=== PATIENT | female | born 1955 | race Caucasian/White ===

== ENCOUNTER 2017-06-02 15:24 | Emergency (ER) | payer OTHER ==
[~2017-06-02] VITALS: Ht 172.7 cm; Wt 81.7 kg
[~2017-06-02 15:24] MED LIST: ALPR.25 PO; ASCO500 PO; ASPI81CH PO; B Complex #11 EACH PO; BIOTIN1 MG PO; Budeprion Xl300 MG PO; CALCIUM PO; COQ1050 MG PO; CYAN500 PO; CYCL10 PO; IBUP600 PO; LETR2.5 PO; OXYC5; PROLIA60 MG/1 ML SC; VALACYCLOVIR500 MG PO; VIT PO; VITAMIN D-32000 UNI1 PO
[2017-06-02 16:11] LABS: BASOPHILS ABSOLUTE AUTO 0.04 K/mm3 (0.00-0.23); BASOPHILS PERCENT AUTO 1 % (0-2); EOSINOPHILS ABSOLUTE AUTO 0.09 K/mm3 (0.00-0.68); EOSINOPHILS PERCENT AUTO 1 % (0-6); Hematocrit 43.9 % (33.0-51.0); Hemoglobin 14.7 g/dL (11.5-16.0); IMMATURE GRAN ABSOLUTE AUTO 0.02 K/mm3 (0.00-0.10); IMMATURE GRAN PERCENT AUTO 0 % (0-1); LYMPHOCYTES ABSOLUTE AUTO 0.85 K/mm3 (0.84-5.20); LYMPHOCYTES PERCENT AUTO 10 % (21-46); MONOCYTES ABSOLUTE AUTO 0.47 K/mm3 (0.16-1.47); MONOCYTES PERCENT AUTO 6 % (4-13); Mean Corpuscular HGB 29.5 pg (26.0-34.0); Mean Corpuscular HGB Conc 33.5 g/dL (31.5-36.5); Mean Corpuscular Volume 88 fL (80-100); Mean Platelet Volume 9.2 fL (9.1-12.4); NEUTROPHILS ABSOLUTE AUTO 6.94 K/mm3 (1.96-9.15); NEUTROPHILS PERCENT AUTO 83 % (41-73); Platelet Count 275 K/mm3 (150-400); RDW Standard Deviation 38.6 fL (35.1-46.3); Red Blood Cell Count 4.99 M/mm3 (3.80-5.20); White Blood Cell Count 8.41 K/mm3 (4.00-11.30)
[2017-06-02 16:31] LABS: Alanine Aminotransfer (ALT/SGP 34 U/L (12-78); Albumin, Blood 3.9 g/dL (3.4-5.0); Alk Phos 78 U/L (50-136); Anion Gap 9 mmol/L (6-16); Aspartate Aminotrans (AST/SGOT 30 U/L (12-37); Bilirubin, Total 0.4 mg/dL (0.1-1.0); Blood Urea Nitrogen 16 mg/dL (8-24); Bun/Creatinine Ratio 20.5 (12.0-20.0); CO2, Blood 25 mmol/L (21-32); Calcium, Blood 9.3 mg/dL (8.5-10.1); Chloride, Blood 102 mmol/L (98-108); Creatinine, Blood 0.78 mg/dL (0.40-1.00); Globulin, Blood 3.9 g/dL (2.2-4.0); Glomerular Filtration Rate >60 (60-); Glucose, Blood 99 mg/dL (70-99); Potassium, Blood 4.4 mmol/L (3.5-5.5); Sodium, Blood 136 mmol/L (136-145); Total Protein, Blood 7.8 g/dL (6.4-8.2)
[2017-06-02] MEDS ORDERED: CHOL10002 PO (16:36)
[2017-06-02 18:45] LABS: Source, Urine Clean Catch
[2017-06-02 18:48] LABS: Bilirubin, Urine Neg (Neg); Blood, Urine 1+ (Neg); Glucose Qualitative, Urine Neg (Neg); Ketones, Urine Neg (Neg); Leukocyte Esterase, Urine 1+ (Neg); Nitrite, Urine Neg (Neg); Protein, Urine Neg (Neg); Specific Gravity, Urine 1.015 (1.003-1.022); Urobilinogen, Urine NORM (Normal)
[2017-06-02 18:55] LABS: Influenza A Negative (NEGATIVE); Influenza B Negative (NEGATIVE)
[2017-06-02 19:01] LABS: Appearance, Urine Clear (Clear); Color, Urine Pale Yellow (P-Yellow)
[2017-06-02 19:03] LABS: Red Blood Cells, Urine Not Seen /hpf (0-2); Squamous Epithelial Cells Not Seen /hpf (Few); White Blood Cells, Urine 0-2 /hpf (0-5)
[2017-06-02 19:04] LABS: Bacteria Few /hpf
[2017-06-02] MEDS ORDERED: PROM25 PO (19:15)
[2018-01-01] MEDS ORDERED: LETR2.5 PO (15:37)
[2018-01-01] MEDS ORDERED: DEXA2 PO (15:38)
[2018-01-01] MEDS ORDERED: ONDA4ODT MM (15:38)
[2018-01-01] MEDS ORDERED: FURO40 PO (15:39)
[2018-01-01] MEDS ORDERED: Megace Es625 MG/5 M PO (15:39)
[2018-01-01] MEDS ORDERED: GABA300 PO (15:39)
[2018-01-25] MEDS ORDERED: PENVK250 PO (20:01)
== END 2017-06-02 19:30 | disposition home or self-care (01) ==
LOC: ER 15:24
PROVIDERS: Emergency Medicine
DX: R11.2 Nausea with vomiting, unspecified (principal); C34.91 Malignant neoplasm of unspecified part of right bronchus or lung; C79.31 Secondary malignant neoplasm of brain; Z88.5 Allergy status to narcotic agent; Z79.899 Other long term (current) drug therapy; Z79.82 Long term (current) use of aspirin; Z85.3 Personal history of malignant neoplasm of breast; Z90.12 Acquired absence of left breast and nipple; Z87.891 Personal history of nicotine dependence
CPT/HCPCS: 36415; 80053; 81001; 83690; 85025; 87086; 87804; 96361; 96374; 99283; J2405; J7030

== ENCOUNTER 2017-06-14 07:11 | Day surgery (SDC) | payer OTHER ==
[~2017-06-14] VITALS: Ht 175.3 cm; Wt 82.5 kg
[~2017-06-14 07:11] MED LIST changes: +CHOL10002 PO; +PROM25 PO
[2018-01-01] MEDS ORDERED: LETR2.5 PO (15:37)
[2018-01-01] MEDS ORDERED: DEXA2 PO (15:38)
[2018-01-01] MEDS ORDERED: ONDA4ODT MM (15:38)
[2018-01-01] MEDS ORDERED: Megace Es625 MG/5 M PO (15:39)
[2018-01-01] MEDS ORDERED: FURO40 PO (15:39)
[2018-01-01] MEDS ORDERED: GABA300 PO (15:39)
[2018-01-25] MEDS ORDERED: PENVK250 PO (20:01)
== END 2017-06-14 22:56 | disposition home or self-care (01) ==
LOC: ORSCMMR 07:11
PROVIDERS: Surgery
PROC: B5131ZA Fluoroscopy of Right Jugular Veins using Low Osmolar Contrast, Guidance (ICD-10-PCS; principal; 2017-06-14 08:45)
PROC: 05HM33Z Insertion of Infusion Device into Right Internal Jugular Vein, Percutaneous Approach (ICD-10-PCS; principal; 2017-06-14 08:45)
DX: C34.90 Malignant neoplasm of unspecified part of unspecified bronchus or lung (principal); C79.51 Secondary malignant neoplasm of bone; J44.9 Chronic obstructive pulmonary disease, unspecified; Z87.891 Personal history of nicotine dependence; Z79.82 Long term (current) use of aspirin; Z79.899 Other long term (current) drug therapy
CPT/HCPCS: 77001; C1788; J0690; J1100; J1642; J2250; J2370; J2405; J3010; J7120

== ENCOUNTER 2018-01-04 06:02 | Day surgery (SDC) | payer OTHER ==
[~2018-01-04] VITALS: Ht 175.3 cm; Wt 81.7 kg
[~2018-01-04 06:02] MED LIST changes: -B Complex #11 EACH PO; +DEXA2 PO; +FURO40 PO; +GABA300 PO; +Megace Es625 MG/5 M PO; +ONDA4ODT MM; +Super B Comple150 MG PO
== END 2018-01-04 22:49 | disposition home or self-care (01) ==
LOC: ORSCMMR 06:02 → ORD 07:30 → ORSCMMR 07:30
PROVIDERS: Surgery
PROC: 05H533Z Insertion of Infusion Device into Right Subclavian Vein, Percutaneous Approach (ICD-10-PCS; principal; 2018-01-04 07:30)
PROC: B546ZZA Ultrasonography of Right Subclavian Vein, Guidance (ICD-10-PCS; principal; 2018-01-04 07:30)
DX: C34.11 Malignant neoplasm of upper lobe, right bronchus or lung (principal); C79.51 Secondary malignant neoplasm of bone; T82.514A Breakdown (mechanical) of infusion catheter, initial encounter; J44.9 Chronic obstructive pulmonary disease, unspecified; M79.7 Fibromyalgia; Z79.899 Other long term (current) drug therapy; Z87.891 Personal history of nicotine dependence; Z79.82 Long term (current) use of aspirin
CPT/HCPCS: 77001; C1788; J0690; J1642; J2001; J2250; J2370; J3010; J7120

== ENCOUNTER 2018-04-21 11:12 | Inpatient (IN) | payer OTHER ==
[~2018-04-21] VITALS: Ht 172.7 cm; Wt 77.4 kg
[~2018-04-21 11:12] MED LIST changes: +B Complex #11 EACH PO; -BIOTIN1 MG PO; +BIOTIN5000 MCG PO; +PENVK250 PO; -Super B Comple150 MG PO
[2018-04-21] MEDS ORDERED: OXYC10TA19 PO (11:27)
[2018-04-21] MEDS ORDERED: VALA500 PO (11:27)
[2018-04-21 12:37] LABS: BASOPHILS ABSOLUTE AUTO 0.03 K/mm3 (0.00-0.23); BASOPHILS PERCENT AUTO 0 % (0-2); EOSINOPHILS ABSOLUTE AUTO 0.15 K/mm3 (0.00-0.68); EOSINOPHILS PERCENT AUTO 2 % (0-6); Hemoglobin 13.7 g/dL (11.5-16.0); IMMATURE GRAN ABSOLUTE AUTO 0.01 K/mm3 (0.00-0.10); IMMATURE GRAN PERCENT AUTO 0 % (0-1); LYMPHOCYTES ABSOLUTE AUTO 1.29 K/mm3 (0.84-5.20); LYMPHOCYTES PERCENT AUTO 18 % (21-46); MONOCYTES ABSOLUTE AUTO 0.87 K/mm3 (0.16-1.47); MONOCYTES PERCENT AUTO 12 % (4-13); Mean Corpuscular HGB 29.7 pg (26.0-34.0); Mean Corpuscular HGB Conc 31.9 g/dL (31.5-36.5); Mean Corpuscular Volume 93 fL (80-100); Mean Platelet Volume 9.8 fL (9.1-12.4); NEUTROPHILS ABSOLUTE AUTO 4.96 K/mm3 (1.96-9.15); NEUTROPHILS PERCENT AUTO 68 % (41-73); Platelet Count 232 K/mm3 (150-400); RDW Standard Deviation 41.5 fL (35.1-46.3); Red Blood Cell Count 4.61 M/mm3 (3.80-5.20); White Blood Cell Count 7.31 K/mm3 (4.00-11.30)
[2018-04-21 12:58] LABS: Albumin, Blood 3.2 g/dL (3.4-5.0); Bilirubin, Total 0.4 mg/dL (0.1-1.0); Bun/Creatinine Ratio 8.3 (12.0-20.0); Calcium, Blood 8.5 mg/dL (8.5-10.1); Creatinine, Blood 2.29 mg/dL (0.40-1.00); Globulin, Blood 3.3 g/dL (2.2-4.0); Potassium, Blood 4.4 mmol/L (3.5-5.5); Total Protein, Blood 6.5 g/dL (6.4-8.2)
[2018-04-21 13:55] LABS: Source, Urine Clean Catch
[2018-04-21 14:01] LABS: Appearance, Urine Clear (Clear); Bilirubin, Urine Neg (Neg); Blood, Urine 1+ (Neg); Color, Urine Yellow (P-Yellow); Glucose Qualitative, Urine Neg (Neg); Ketones, Urine Neg (Neg); Leukocyte Esterase, Urine 1+ (Neg); Nitrite, Urine Neg (Neg); Protein, Urine 1+ (Neg); Specific Gravity, Urine 1.015 (1.003-1.022); Urobilinogen, Urine NORM (Normal)
[2018-04-21 14:13] LABS: Squamous Epithelial Cells Few /hpf (Few)
[2018-04-21 14:15] LABS: Bacteria Rare /hpf
[2018-04-21 14:22] LABS: Calcium Oxalate Crystals Many /hpf
--- NOTE | 2018-04-21 19:14 | NUR ---
SHIFT SUMMARY: PATIENT ADMIT FROM ED THIS SHIFT; FULL ADMIT COMPLETED. PT A&O; CALM AND COOEPRATIVE WITH CARE. MEDICATED FOR PAIN PER EMAR. WEAK GAIT; 1-ASSIST c FWW TO BATHROOM; BED ALARM ON FOR SAFETY. REPORT GIVEN TO ONCOMING RN.
[2018-04-22 04:52] LABS: BASOPHILS ABSOLUTE AUTO 0.02 K/mm3 (0.00-0.23); BASOPHILS PERCENT AUTO 1 % (0-2); EOSINOPHILS ABSOLUTE AUTO 0.15 K/mm3 (0.00-0.68); EOSINOPHILS PERCENT AUTO 4 % (0-6); Hematocrit 32.9 % (33.0-51.0); Hemoglobin 10.9 g/dL (11.5-16.0); IMMATURE GRAN ABSOLUTE AUTO 0.01 K/mm3 (0.00-0.10); IMMATURE GRAN PERCENT AUTO 0 % (0-1); LYMPHOCYTES ABSOLUTE AUTO 0.92 K/mm3 (0.84-5.20); LYMPHOCYTES PERCENT AUTO 21 % (21-46); MONOCYTES PERCENT AUTO 12 % (4-13); Mean Corpuscular HGB Conc 33.1 g/dL (31.5-36.5); Mean Corpuscular Volume 91 fL (80-100); Mean Platelet Volume 9.9 fL (9.1-12.4); NEUTROPHILS ABSOLUTE AUTO 2.74 K/mm3 (1.96-9.15); NEUTROPHILS PERCENT AUTO 63 % (41-73); Platelet Count 191 K/mm3 (150-400); RDW Coefficient Variation 11.9 % (11.7-14.2); RDW Standard Deviation 39.7 fL (35.1-46.3); Red Blood Cell Count 3.63 M/mm3 (3.80-5.20); White Blood Cell Count 4.34 K/mm3 (4.00-11.30)
[2018-04-22 05:15] LABS: Alanine Aminotransfer (ALT/SGP 38 U/L (12-78); Albumin, Blood 2.4 g/dL (3.4-5.0); Alk Phos 40 U/L (50-136); Anion Gap 8 mmol/L (6-16); Aspartate Aminotrans (AST/SGOT 40 U/L (12-37); Bilirubin, Total 0.6 mg/dL (0.1-1.0); Blood Urea Nitrogen 11 mg/dL (8-24); Bun/Creatinine Ratio 11.2 (12.0-20.0); CO2, Blood 22 mmol/L (21-32); Calcium, Blood 7.2 mg/dL (8.5-10.1); Chloride, Blood 112 mmol/L (98-108); Creatinine, Blood 0.98 mg/dL (0.40-1.00); Globulin, Blood 2.5 g/dL (2.2-4.0); Glomerular Filtration Rate >60 (60-); Glucose, Blood 92 mg/dL (70-99); Magnesium, Blood 1.6 mg/dL (1.6-2.4); Phosphorus, Blood 2.7 mg/dL (2.5-4.9); Potassium, Blood 3.7 mmol/L (3.5-5.5); Sodium, Blood 142 mmol/L (136-145); Total Protein, Blood 4.9 g/dL (6.4-8.2)
--- NOTE | 2018-04-22 06:10 | NUR ---
SHIFT SUMMARY PT HAS BEEN DOING WELL THIS SHIFT. PT HAD NO ACUTE ISSUES NOTED. PT DISCOMFORT WAS TX PER EMAR. PT IS ABLE TO USE RESTROOM WITHOUT ASSISTANCE. PT IS BREATHING EASY AND SLEEPING. CALL LIGHT IN REACH.
[2018-04-22 10:32] LABS: Eosinophils-Raw #,Urine 0
--- NOTE | 2018-04-22 17:21 | NUR ---
PT HAS BEEN AOX4 AND COOPERATIVE OF CARE. PT HAS CONTINUED TO HAVE LOW BPs AND WAS GIVEN 500ML BOLUS DUE TO BP OF 83/52. PT HAS DENIED FEELING DIZZY TODAY, BUT HAS HAD NAUSEA AND WAS TREATED PER EMAR. PT WALKS WELL TO RESTROOM AND WILL CALL WHEN SHE NEEDS TO USE RESTROOM. WILL MONITOR, NO DISTRESS AT THIS TIME.
[2018-04-23 05:00] LABS: BASOPHILS ABSOLUTE AUTO 0.01 K/mm3 (0.00-0.23); BASOPHILS PERCENT AUTO 0 % (0-2); EOSINOPHILS ABSOLUTE AUTO 0.18 K/mm3 (0.00-0.68); EOSINOPHILS PERCENT AUTO 5 % (0-6); Hematocrit 31.6 % (33.0-51.0); Hemoglobin 10.2 g/dL (11.5-16.0); IMMATURE GRAN PERCENT AUTO 0 % (0-1); LYMPHOCYTES ABSOLUTE AUTO 0.81 K/mm3 (0.84-5.20); LYMPHOCYTES PERCENT AUTO 21 % (21-46); MONOCYTES ABSOLUTE AUTO 0.47 K/mm3 (0.16-1.47); MONOCYTES PERCENT AUTO 12 % (4-13); Mean Corpuscular HGB 29.5 pg (26.0-34.0); Mean Corpuscular HGB Conc 32.3 g/dL (31.5-36.5); Mean Corpuscular Volume 91 fL (80-100); Mean Platelet Volume 9.9 fL (9.1-12.4); NEUTROPHILS ABSOLUTE AUTO 2.44 K/mm3 (1.96-9.15); NEUTROPHILS PERCENT AUTO 62 % (41-73); Platelet Count 161 K/mm3 (150-400); RDW Coefficient Variation 11.7 % (11.7-14.2); RDW Standard Deviation 39.2 fL (35.1-46.3); Red Blood Cell Count 3.46 M/mm3 (3.80-5.20); White Blood Cell Count 3.91 K/mm3 (4.00-11.30)
[2018-04-23 05:27] LABS: Alanine Aminotransfer (ALT/SGP 28 U/L (12-78); Albumin/Globulin Ratio 0.8 (0.8-1.8); Alk Phos 37 U/L (50-136); Anion Gap 7 mmol/L (6-16); Aspartate Aminotrans (AST/SGOT 34 U/L (12-37); Bilirubin, Total 0.4 mg/dL (0.1-1.0); Blood Urea Nitrogen 7 mg/dL (8-24); CO2, Blood 18 mmol/L (21-32); CPK Creatine Kinase 439 U/L (26-193); Calcium, Blood 6.6 mg/dL (8.5-10.1); Chloride, Blood 115 mmol/L (98-108); Globulin, Blood 2.5 g/dL (2.2-4.0); Glomerular Filtration Rate >60 (60-); Glucose, Blood 73 mg/dL (70-99); Sodium, Blood 140 mmol/L (136-145); Total Protein, Blood 4.5 g/dL (6.4-8.2)
--- NOTE | 2018-04-23 06:46 | NUR ---
SHIFT SUMMARY PT HAD UNEVENTFUL NIGHT. PT SLEPT WELL AND HAD NO ACUTE ISSUES. PT INDEPENDANT IN ROOM AND HAD NO SIGNIFICANT COMPLAINTS. PT HAS APPETITE BUT STATES IS AFRAID TO TRY AND EAT. PT BREATHING EASY AND CALL LIGHT IN REACH.
--- NOTE | 2018-04-23 17:52 | NUR ---
SHIFT SUMMARY PATIENT A&O X4, SBA TO BATHROOM. COMPLAINTS OF BACK PAIN THIS SHIFT. RN MEDICATED X2. MEDICATED FOR NAUSEA X1. PATIENT HAS NOT BEEN ABLE TO EAT AT ALL DUE TO HER STOMACH "NOT FEELING WELL." FLUIDS RUNNING. MEDICATED PER Jun. BED IN LOWEST POSITION. CALL LIGHT WITHIN REACH. NO ACUTE CHANGES. RN WILL CONTINUE TO MONITOR.
--- NOTE | 2018-04-24 05:07 | NUR ---
SHIFT SUMMARY: PT IS ALERT AND ORIENTED. PT IS CALM AND COOPERATIVE WITH CARE. PT CALLS APPROPRIATELY. PT IS INDEPENDENT IN THE ROOM. PT REPORTS NAUSEA ON ONE OCCASION, GAVE PRN ZOFRAN. PT DENIES PAIN, VOMITING, AND SOB. PT SLEPT MUCH OF THE NIGHT WHEN NOT DISTURBED. FLUIDS RUNNING ORDERED. POSSIBLE DC HOME TODAY. NO ACUTE CHANGES OR COMPLICATIONS. WILL REPORT TO DAY NURSE.
[2018-04-24] MEDS ORDERED: CLOT10 SS (14:31)
[2018-04-24] MEDS ORDERED: MEGE40T (14:37)
[2018-04-24] MEDS ORDERED: PANT40 PO (14:38)
[2018-04-24] MEDS ORDERED: ONDA4ODT MM (14:38)
--- NOTE | 2018-04-24 16:28 | NUR ---
PT. DISCHARGED HOME WITH DAD VERBALIZED UNDERSTANDING OF DISCHARGE ORDERS.
== END 2018-04-24 16:24 | disposition home or self-care (01) | DRG 682 ==
LOC: ER 11:12 → MEDS 11:13 → ENPENDDIS 04-24 13:27 → MEDS 04-24 16:24
PROVIDERS: Internal Medicine; ADMIT Hospitalist
DX: N17.9 Acute kidney failure, unspecified (principal); E43 Unspecified severe protein-calorie malnutrition; E86.0 Dehydration; E86.9 Volume depletion, unspecified; F32.9 Major depressive disorder, single episode, unspecified; L40.9 Psoriasis, unspecified; M19.90 Unspecified osteoarthritis, unspecified site; M79.7 Fibromyalgia; G89.4 Chronic pain syndrome; D64.89 Other specified anemias; I95.9 Hypotension, unspecified; Z85.3 Personal history of malignant neoplasm of breast; Z92.21 Personal history of antineoplastic chemotherapy; Z92.3 Personal history of irradiation; Z85.118 Personal history of other malignant neoplasm of bronchus and lung; Z91.040 Latex allergy status; Z88.5 Allergy status to narcotic agent; Z91.048 Other nonmedicinal substance allergy status; Z87.891 Personal history of nicotine dependence; Z79.82 Long term (current) use of aspirin; Z79.899 Other long term (current) drug therapy; Z68.25 Body mass index [BMI] 25.0-25.9, adult
CPT/HCPCS: 36415; 71046; 76770; 80053; 81001; 82436; 82550; 83735; 83880; 84100; 84300; 85025; 86140; 87205; 96361; 96374; 96375; 97116; 97161; 97165; 97530; 97535; 99285-25; J2405; J2765; J3010; J7030; J7040; J7120

== ENCOUNTER 2018-05-28 13:36 | Day surgery (SDC) | payer OTHER ==
[~2018-05-28 13:36] MED LIST changes: +CLOT10 SS; +MEGE40T; +OXYC10TA19 PO; +PANT40 PO; +VALA500 PO
== END 2018-05-28 23:02 | disposition home or self-care (01) ==
LOC: US 13:36
DX: R22.9 Localized swelling, mass and lump, unspecified (principal)
CPT/HCPCS: 76942; 88304

== ENCOUNTER 2018-06-13 18:07 | Inpatient (IN) | payer OTHER ==
[~2018-06-13] VITALS: Ht 175.3 cm; Wt 75.7 kg
[2018-06-13 18:39] LABS: BASOPHILS ABSOLUTE AUTO 0.05 K/mm3 (0.00-0.23); BASOPHILS PERCENT AUTO 1 % (0-2); EOSINOPHILS ABSOLUTE AUTO 0.45 K/mm3 (0.00-0.68); EOSINOPHILS PERCENT AUTO 9 % (0-6); Hematocrit 49.7 % (33.0-51.0); Hemoglobin 16.5 g/dL (11.5-16.0); IMMATURE GRAN ABSOLUTE AUTO 0.01 K/mm3 (0.00-0.10); IMMATURE GRAN PERCENT AUTO 0 % (0-1); LYMPHOCYTES PERCENT AUTO 14 % (21-46); MONOCYTES ABSOLUTE AUTO 0.69 K/mm3 (0.16-1.47); MONOCYTES PERCENT AUTO 13 % (4-13); Mean Corpuscular HGB Conc 33.2 g/dL (31.5-36.5); Mean Corpuscular Volume 88 fL (80-100); Mean Platelet Volume 10.2 fL (9.1-12.4); NEUTROPHILS ABSOLUTE AUTO 3.27 K/mm3 (1.96-9.15); NEUTROPHILS PERCENT AUTO 63 % (41-73); Platelet Count 248 K/mm3 (150-400); RDW Coefficient Variation 13.2 % (11.7-14.2); RDW Standard Deviation 42.2 fL (35.1-46.3); Red Blood Cell Count 5.68 M/mm3 (3.80-5.20); White Blood Cell Count 5.17 K/mm3 (4.00-11.30)
[2018-06-13 19:01] LABS: Alanine Aminotransfer (ALT/SGP 153 U/L (12-78); Albumin, Blood 3.7 g/dL (3.4-5.0); Albumin/Globulin Ratio 0.9 (0.8-1.8); Alk Phos 61 U/L (50-136); Anion Gap 12 mmol/L (6-16); Aspartate Aminotrans (AST/SGOT 106 U/L (12-37); Bilirubin, Total 0.6 mg/dL (0.1-1.0); Blood Urea Nitrogen 17 mg/dL (8-24); Bun/Creatinine Ratio 20.5 (12.0-20.0); CO2, Blood 17 mmol/L (21-32); Chloride, Blood 108 mmol/L (98-108); Creatinine, Blood 0.83 mg/dL (0.40-1.00); Globulin, Blood 3.9 g/dL (2.2-4.0); Glomerular Filtration Rate >60 (60-); Glucose, Blood 85 mg/dL (70-99); Potassium, Blood 3.4 mmol/L (3.5-5.5); Sodium, Blood 137 mmol/L (136-145); Total Protein, Blood 7.6 g/dL (6.4-8.2)
--- NOTE | 2018-06-14 06:52 | NUR ---
ASSUMED CARE OF PATIENT AT APPROXIMATELY 0205 FROM ED KELSEY BERUMEN. PATIENT ARRIVED TO UNIT VIA STRETCHER; TRANSFER BY SLIDING ACROSS FROM ED TO PCU STRETCHER. PATIENT ALERT AND ORIENTED; SLOW TO RESPOND. PATIENT INCONTINENT OF DIARRHEA; REPORTS STARTED PAST FEW DAYS; DENICE AREA RED DUE TO STOOL. PATIENT REPORTS SHE IS NOT ALWAYS INCONTINENT. MEDICAL NO TELE OBS PATIENT. OXYGEN SATURATION ABOVE 90% ON ROOM AIR; VSS. NS INFUSING PER ORDER; ONE MORE BAG TO INFUSE. ADMISSION COMPLETE. PATIENT REPORTS LAST CHEMO/RADIATION TREATMENT WAS 4 WEEKS AGO. PATIENT CURRENTLY SLEEPING IN BED; CALL LIGHT IN REACH; BED IN LOWEST POSISTION; WILL CONTINUE TO MONITOR AND ASSESS UNTIL END OF SHIFT.
[2018-06-14 07:31] LABS: Anion Gap 15 mmol/L (6-16); Blood Urea Nitrogen 19 mg/dL (8-24); Bun/Creatinine Ratio 23.2 (12.0-20.0); CO2, Blood 14 mmol/L (21-32); Calcium, Blood 8.7 mg/dL (8.5-10.1); Chloride, Blood 111 mmol/L (98-108); Creatinine, Blood 0.82 mg/dL (0.40-1.00); Glomerular Filtration Rate >60 (60-); Glucose, Blood 83 mg/dL (70-99); Potassium, Blood 3.6 mmol/L (3.5-5.5); Sodium, Blood 140 mmol/L (136-145)
--- NOTE | 2018-06-14 08:00 | NUR ---
PT LAYING IN BED WITH EYES OPEN, A/OX3, PLEASANT AND COOPERATIVE WITH CARE, FOLLOWS COMMANDS WELL, STATES SHE HAS HAD DIARRHEA SINCE MONDAY, AND IS NOT NAUSIATED AT THIS TIME, IS GETTING UP FREQ TO BS, AND SOILING HERSELF, ATTENDS IN PLACE, LUNGS ARE CLEAR T/O, RESP EVEN AND UNLABORED, NO COUGH NOTED, CURRENTLY ON R/A HRR, NO EDEMA NOTED, PPP+1, CAP REFILL <3SEC, VS STABLE, AFEBRILE, IV SITE IS CLEAR AND PATENT, BTX4, ABD FLAT SOFT NONTENDER, VOIDS WITHOUT DIFF, SKIN C/W/D, MAEW, GERALD, CALL LIGHT IN REACH.
[2018-06-14 11:59] LABS: Adenovirus F 40/41 Not Detected (NOT DETECT); Astrovirus Not Detected (NOT DETECT); Campylobacter Sp Not Detected (NOT DETECT); Cryptosporidium Not Detected (NOT DETECT); Cyclospora Cayetanensis Not Detected (NOT DETECT); E. Coli O157 Not Detected (NOT DETECT); Entamoeba Histolytica Not Detected (NOT DETECT); Enteroaggregative E. coli-EAEC Not Detected (NOT DETECT); Enteropathogenic E. coli-EPEC Not Detected (NOT DETECT); Enterotoxigenic E. coli-ETEC Not Detected (NOT DETECT); Giardia Lamblia Not Detected (NOT DETECT); Norovirus GI/GII Detected (NOT DETECT); Plesiomonas Shigelloides Not Detected (NOT DETECT); Rotavirus A Not Detected (NOT DETECT); Salmonella Sp Not Detected (NOT DETECT); Sapovirus Not Detected (NOT DETECT); Shiga Toxin-prod E. coli-STEC Not Detected (NOT DETECT); Shigella/Enteroin E. coli-EIEC Not Detected (NOT DETECT); Vibrio Cholerae Not Detected (NOT DETECT); Vibrio Sp Not Detected (NOT DETECT); Yersinia Enterocolitica Not Detected (NOT DETECT)
--- NOTE | 2018-06-14 12:34 | NUR ---
pt laying in bed, have assisted to bsc a number of times with loose stools, no other needs at this time, call light in reach.
--- NOTE | 2018-06-14 18:33 | NUR ---
PT HAS BEEN NAUSIATED THIS EVENING, SHE DID VOMIT AFTER SIPPING SOME PEPSI, ZOFRAN WAS GIVEN, SHE HAS HAD MANY ATTENDS CHANGES WITH LOOSE STOOL. HER DENICE AREA IS VERY RED, RECIEVED ORDER FOR NYSTATIN, THIS WAS APPLIED, STARTED HER ON D51/2 NS WITH 20 KCL TO RUN AT 75MLS/HR. NO FURTHER CHANGES THIS SHIFT. CALL LIGHT IN REACH.
--- NOTE | 2018-06-14 22:16 | NUR ---
ASSUMED CARE OF PATIENT AT APPROXIMATELY 1910 FROM THEE Pereyra RN. PATIENT ALERT AND ORIENTED; SLOW TO RESPOND; MOMENTS OF CONFUSION. PATIENT INCONTINENT OF DIARRHEA; DENICE AREA RED DUE TO STOOL; NYSTATIN ORDERED. CONTACT ISOLATION FOR VIRUS. MEDICAL NO TELE OBS PATIENT. OXYGEN SATURATION ABOVE 90% ON ROOM AIR; VSS. IVF INFUSING PER ORDER; ONE MORE BAG TO INFUSE. PATIENT REPORTS LAST CHEMO/RADIATION TREATMENT WAS 4 WEEKS AGO. PATIENT CURRENTLY SLEEPING IN BED; CALL LIGHT IN REACH; BED IN LOWEST POSISTION; REPORT CALLED TO STEPHANIE ON MEDICAL FLOOR; PATIENT WILL BE EXCORTED TO ROOM 330 WITH BELONGING ON STRETCHER, CHART AND MEDS BY PCU STAFF.
--- NOTE | 2018-06-14 22:50 | NUR ---
PT ARRIVED TO FLOOR AT 2250 PT ARRIVED TO MED FLOOR RM 330 VIA STRETCHER. I RECIEVED REPORT FROM BONNIE DAMICO RN AROUND [id number].
[2018-06-15 05:40] LABS: BASOPHILS ABSOLUTE AUTO 0.04 K/mm3 (0.00-0.23); BASOPHILS PERCENT AUTO 1 % (0-2); EOSINOPHILS ABSOLUTE AUTO 0.49 K/mm3 (0.00-0.68); EOSINOPHILS PERCENT AUTO 8 % (0-6); Hematocrit 43.6 % (33.0-51.0); Hemoglobin 14.8 g/dL (11.5-16.0); IMMATURE GRAN ABSOLUTE AUTO 0.01 K/mm3 (0.00-0.10); IMMATURE GRAN PERCENT AUTO 0 % (0-1); LYMPHOCYTES ABSOLUTE AUTO 0.88 K/mm3 (0.84-5.20); LYMPHOCYTES PERCENT AUTO 14 % (21-46); MONOCYTES ABSOLUTE AUTO 0.86 K/mm3 (0.16-1.47); MONOCYTES PERCENT AUTO 14 % (4-13); Mean Corpuscular HGB Conc 33.9 g/dL (31.5-36.5); Mean Corpuscular Volume 86 fL (80-100); Mean Platelet Volume 10.5 fL (9.1-12.4); NEUTROPHILS ABSOLUTE AUTO 3.81 K/mm3 (1.96-9.15); NEUTROPHILS PERCENT AUTO 63 % (41-73); Platelet Count 232 K/mm3 (150-400); RDW Coefficient Variation 13.2 % (11.7-14.2); RDW Standard Deviation 41.1 fL (35.1-46.3); White Blood Cell Count 6.09 K/mm3 (4.00-11.30)
--- NOTE | 2018-06-15 06:49 | NUR ---
SHIFT SUMMARY PT SLEPT ON/OFF T/O NIGHT. AOX4. PT REPORTS 4/10 PAIN IN ABD & STATES IT IS TENDER TO TOUCH, BUT DENIES NEED FOR PAIN MEDICATION. PT REPORTS MILD NAUSEA BUT DENIES ANY NEED FOR ANTIEMETIC & HAS HAD NO EMESIS SINCE I ASSUMED CARE. PT HAD 2 MEDIUM LIQUID YELLOW GREEN INCONTINENT BM THIS SHIFT. DENICE AREA & GLUTEAL CLEFT VERY RED & TENDER WHEN WIPED. CALL LIGHT IN REACH & BED ALARM ON, WILL CONT TO MONITOR PT.
[2018-06-15 07:20] LABS: Alanine Aminotransfer (ALT/SGP 96 U/L (12-78); Albumin, Blood 2.8 g/dL (3.4-5.0); Albumin/Globulin Ratio 0.8 (0.8-1.8); Alk Phos 44 U/L (50-136); Anion Gap 11 mmol/L (6-16); Aspartate Aminotrans (AST/SGOT 50 U/L (12-37); Bilirubin, Total 0.5 mg/dL (0.1-1.0); Blood Urea Nitrogen 12 mg/dL (8-24); CO2, Blood 16 mmol/L (21-32); Calcium, Blood 7.9 mg/dL (8.5-10.1); Chloride, Blood 113 mmol/L (98-108); Creatinine, Blood 0.67 mg/dL (0.40-1.00); Globulin, Blood 3.4 g/dL (2.2-4.0); Glomerular Filtration Rate >60 (60-); Glucose, Blood 127 mg/dL (70-99); Potassium, Blood 3.2 mmol/L (3.5-5.5); Sodium, Blood 140 mmol/L (136-145); Total Protein, Blood 6.2 g/dL (6.4-8.2)
--- NOTE | 2018-06-15 18:00 | NUR ---
Went to see patient for care planning and advance directive. Patient alert lennoxng called to patient. Her Iv is leaking and uncomfortable. pt mouth sore stomitis and possible thrush. pt lips slighly swollen and speach thick. to compains of sharp pains to abdomena nd diaphram. pt stools and cramping. she has slight headache no ringining inears and feesl a little tight in her breathing but denies dyspnea. pt graoin red and she is having moisty slimey light brown stools no bleeding noted. pericare given and positionig for comfort. Revie wof patient with nursing suggest sligh increase in pain medications due to increasing pain and stools. monitor closely for allergic reaction suggest treatment for thrush and have benadryl order. advised pt will return to speak with her more and help her with her symptoms and a plan. It may be best to speak with her family or person who helps her when discussing AD.
--- NOTE | 2018-06-15 19:58 | NUR ---
SHIFT SUMMARY PT HAS BEEN SLEEPING MOST OF THE SHIFT. PT HAS NOT HAD MUCH OF AN APPETITE AND HAS ONLY EATEN BITES OF ICE CREAM AND JELLO. PT DOES TRY TO DRINK FLUIDS. PT C/O MOUTH FEELING DRY. THIS RN GAVE PT MOUTH MOISTURIZER. DR. CARDONA AWARE AND ASSESSED PT'S MOUTH/TONGUE THIS AM. PT CONTINUES TO HAVE SMALL AMOUNTS OF LIQUID STOOL BUT NO VOMITING THIS SHIFT. NEW POWERGLIDE PLACED TO RIGHT UPPER ARM THIS EVENING AND CLINIMIX INFUSING. MEDICATED FOR ABDOMINAL CRAMPING/PAIN X1 THIS LATE AFTERNOON AND PT REPORTS MEDICATION HELPED. THIS RN TOLD NOC RN THAT PAIN MEDICATION EFFECTIVE AND TO GIVE SOME TONIGHT. REPORT GIVEN TO NOC RN. NO ACUTE CHANGES AT THIS TIME. CALL LIGHT IN REACH.
--- NOTE | 2018-06-15 22:09 | NUR ---
rx time change femara chemo rx pt takes at hs did not take today. asks the med be given as she takes at home. time change for rx femara and will administer tonight as requested.
[2018-06-16 06:10] LABS: BASOPHILS ABSOLUTE AUTO 0.04 K/mm3 (0.00-0.23); BASOPHILS PERCENT AUTO 1 % (0-2); EOSINOPHILS ABSOLUTE AUTO 0.54 K/mm3 (0.00-0.68); EOSINOPHILS PERCENT AUTO 10 % (0-6); Hemoglobin 12.3 g/dL (11.5-16.0); IMMATURE GRAN ABSOLUTE AUTO 0.02 K/mm3 (0.00-0.10); IMMATURE GRAN PERCENT AUTO 0 % (0-1); LYMPHOCYTES ABSOLUTE AUTO 0.93 K/mm3 (0.84-5.20); LYMPHOCYTES PERCENT AUTO 18 % (21-46); MONOCYTES ABSOLUTE AUTO 0.74 K/mm3 (0.16-1.47); MONOCYTES PERCENT AUTO 14 % (4-13); Mean Corpuscular HGB 29.8 pg (26.0-34.0); Mean Corpuscular HGB Conc 34.2 g/dL (31.5-36.5); Mean Corpuscular Volume 87 fL (80-100); Mean Platelet Volume 10.3 fL (9.1-12.4); NEUTROPHILS PERCENT AUTO 57 % (41-73); Platelet Count 158 K/mm3 (150-400); RDW Coefficient Variation 13.4 % (11.7-14.2); RDW Standard Deviation 42.3 fL (35.1-46.3); Red Blood Cell Count 4.13 M/mm3 (3.80-5.20); White Blood Cell Count 5.27 K/mm3 (4.00-11.30)
[2018-06-16 06:29] LABS: Alanine Aminotransfer (ALT/SGP 71 U/L (12-78); Albumin, Blood 2.4 g/dL (3.4-5.0); Albumin/Globulin Ratio 0.7 (0.8-1.8); Alk Phos 34 U/L (50-136); Anion Gap 9 mmol/L (6-16); Aspartate Aminotrans (AST/SGOT 53 U/L (12-37); Bilirubin, Total 0.9 mg/dL (0.1-1.0); Blood Urea Nitrogen 10 mg/dL (8-24); CO2, Blood 17 mmol/L (21-32); Calcium, Blood 7.6 mg/dL (8.5-10.1); Chloride, Blood 113 mmol/L (98-108); Creatinine, Blood 0.72 mg/dL (0.40-1.00); Globulin, Blood 3.3 g/dL (2.2-4.0); Glomerular Filtration Rate >60 (60-); Glucose, Blood 95 mg/dL (70-99); Magnesium, Blood 1.5 mg/dL (1.6-2.4); Phosphorus, Blood 2.8 mg/dL (2.5-4.9); Potassium, Blood 4.8 mmol/L (3.5-5.5); Sodium, Blood 139 mmol/L (136-145); Total Protein, Blood 5.7 g/dL (6.4-8.2)
--- NOTE | 2018-06-16 06:41 | NUR ---
pt up this AM to bathroom. incontinent of urine large amt. Continues on clinimix via powerglide IV. Shaun AM labs off powerglide. Medicated x 1 with IV zofran for nausea. Denies acute pain but periand anal excoriation sore. minimal appetite drinking milk. This AM interested in popcycle when set up. Yesterday was Birthday and Brother from out of state surprized her with visist here. In isolation for rod.
--- NOTE | 2018-06-16 17:38 | NUR ---
pt more comfotable this morning, review of symptoms and needs, review of turn cough deep breathing and supportive visit.
--- NOTE | 2018-06-16 18:45 | NUR ---
ALERT AND ORIENTED. ABLE TO MAKE NEEDS KNOWN. UNLABORED RESPIRATIONS. STS LESS DIARRHEA TODAY AND NO VOMITING. HAS BEEN MEDICATED FOR NAUSEA X 1. LIKES POPSICLES. SLEEPING MOST OF DAY. WILL CONTINUE TO MONITOR.
--- NOTE | 2018-06-17 05:52 | NUR ---
pt continues on clinimix at 50 ml hr for nutritional support. she has poor appetite and overall intake continues poor. no diarrhea. urine dark voids x 2 on bsc. antiemetic given x 2 with mild helpful effect. co upper back and abd pain this am janene 10 mg helpful to relieve. PT very weak unable to ambulate unassisted. up to bsc with 1 assist fww.
[2018-06-17 06:16] LABS: Anion Gap 9 mmol/L (6-16); Blood Urea Nitrogen 12 mg/dL (8-24); Bun/Creatinine Ratio 17.2 (12.0-20.0); CO2, Blood 19 mmol/L (21-32); Calcium, Blood 7.6 mg/dL (8.5-10.1); Chloride, Blood 114 mmol/L (98-108); Glomerular Filtration Rate >60 (60-); Glucose, Blood 92 mg/dL (70-99); Magnesium, Blood 1.9 mg/dL (1.6-2.4); Potassium, Blood 3.5 mmol/L (3.5-5.5); Sodium, Blood 142 mmol/L (136-145)
--- NOTE | 2018-06-17 18:43 | NUR ---
ALERT AND ORIENTED. ABLE TO MAKE NEEDS KNOWN. POWERGLIDE INFUSING W/CLINIMEX. NO DIARRHEA PER PATIENT THIS SHIFT. NOT MEDICATED FOR NAUSEA. MEDICATED ONCE FOR PAIN W/GOOD RESULTS. HAD SHOWER AND SEEMS TO FEEL BETTER AFTERWARDS. EATTING CLEAR LIQUIDS AND FULL LIQUID SMALL AMOUNT. GAIT LITTLE UNSTEADY, BUT ABLE TO GET TO BATHROOM W/WALKER AND STANDBY. BED IN LOW POSITION. CALL LIGHT WITHIN REACH. WILL CONTINUE TO MONITOR.
--- NOTE | 2018-06-17 21:36 | NUR ---
DR BROWNE updated on PT co rt upper arm pain at axilla and upperarm. Clinimix infusing at 50 ml hr. Upper arm powerglide in place. PT has lt arm restriction and has lung cancer with bone mets. DR ordered rt upper arm ultrasound due to pain. appearance of rt upper arm wnl but this AM was unable to draw blood. PT also CO dry eye and mouth. RX for biotine and artificial tears prn obtained. Called imaging will obtain rt ue US stat
--- NOTE | 2018-06-17 22:33 | NUR ---
DOPPLER US OF RT UPPER ARM AFTER PTCO PAIN TO AXILLA WITH MOVEMENT TENDERNESS.
--- NOTE | 2018-06-17 23:21 | NUR ---
pt had stat rt ue doppler US and positive for deep and superficial DVT. DR BROWNE notified and xaralto 15 mg po to start tonight. Order to notify provider in AM of need to remove powerglide after anticoagulated and to consult with oncology about use of implanted mediport for continued use of access for IV nutrition clinimix. She said not to remove powerglide IV acess tonight and may continue to use it for clinimix. PT has been saline locked and will start on xaralto 15 mg po starting now and use that dose bid x 3 weeks then start 20 mg once daily for dvt. nofify provider order placed. pulses radial are 2 plus.
[2018-06-18 05:24] LABS: BASOPHILS ABSOLUTE AUTO 0.01 K/mm3 (0.00-0.23); BASOPHILS PERCENT AUTO 0 % (0-2); EOSINOPHILS PERCENT AUTO 11 % (0-6); Hematocrit 31.8 % (33.0-51.0); Hemoglobin 10.3 g/dL (11.5-16.0); IMMATURE GRAN ABSOLUTE AUTO 0.01 K/mm3 (0.00-0.10); IMMATURE GRAN PERCENT AUTO 0 % (0-1); LYMPHOCYTES ABSOLUTE AUTO 0.66 K/mm3 (0.84-5.20); LYMPHOCYTES PERCENT AUTO 18 % (21-46); MONOCYTES PERCENT AUTO 14 % (4-13); Mean Corpuscular HGB 28.9 pg (26.0-34.0); Mean Corpuscular HGB Conc 32.4 g/dL (31.5-36.5); Mean Corpuscular Volume 89 fL (80-100); Mean Platelet Volume 10.5 fL (9.1-12.4); NEUTROPHILS ABSOLUTE AUTO 2.02 K/mm3 (1.96-9.15); NEUTROPHILS PERCENT AUTO 56 % (41-73); Platelet Count 174 K/mm3 (150-400); RDW Coefficient Variation 12.8 % (11.7-14.2); RDW Standard Deviation 42.5 fL (35.1-46.3); Red Blood Cell Count 3.56 M/mm3 (3.80-5.20)
[2018-06-18 05:51] LABS: Alanine Aminotransfer (ALT/SGP 65 U/L (12-78); Albumin, Blood 2.4 g/dL (3.4-5.0); Albumin/Globulin Ratio 0.8 (0.8-1.8); Alk Phos 32 U/L (50-136); Anion Gap 7 mmol/L (6-16); Aspartate Aminotrans (AST/SGOT 57 U/L (12-37); Bilirubin, Total 0.7 mg/dL (0.1-1.0); Blood Urea Nitrogen 12 mg/dL (8-24); Bun/Creatinine Ratio 18.1 (12.0-20.0); CO2, Blood 21 mmol/L (21-32); Calcium, Blood 8.1 mg/dL (8.5-10.1); Chloride, Blood 113 mmol/L (98-108); Creatinine, Blood 0.66 mg/dL (0.40-1.00); Glomerular Filtration Rate >60 (60-); Glucose, Blood 83 mg/dL (70-99); Potassium, Blood 3.9 mmol/L (3.5-5.5); Sodium, Blood 141 mmol/L (136-145); Total Protein, Blood 5.4 g/dL (6.4-8.2)
--- NOTE | 2018-06-18 06:04 | NUR ---
pt with advanced lung cancer with mets and norovirus continues with minimal appetite. She denied nausea but had less than 50% of full liquid diet. declines supplement. PT co back pain and had roxycodone 10 mg po x 1 with helpful effect. Has home rx for 10 mg roxicodone tid prn and she said back pain is from tumors. PT has co tenderness to rt upper arm and stat doppler confirmed dvt and superficial clots to rt ue. DR remy xaralto. Stopped clinimix and did not infuse am protinix due to dvts. powerglide is sl and secured. PT is full code and see's DR Megan Lee for oncology. Order to notify provider day hospitalist about removing powerglide and updating DR Salgado about DVTs and see if it is possible to access rt chest mediport. Up with 1 assist and able to communicate. Lives with elderly parents and needs assist with ADLS . Will put in order for sw referral and to assess support for DC.
--- NOTE | 2018-06-18 08:53 | NUR ---
NOTIFIED DR FORD REGARDING THE NEED TO CONTACT THE ONCOLOGIST, RESULTS OF THE DUPLEX AND THE POWERGLIDE. DR FORD TO CONTACT ONCOLOGIST. NO NEW ORDERS AT THIS TIME. WILL CONTINUE TO MONITOR.
--- NOTE | 2018-06-18 18:58 | NUR ---
SHIFT SUMMARY PT A&OX4. CALM AND COOPERATIVE WITH CARE. PT RESTING IN BED DURING SHIFT. 1 PERSON ASSIST TO BATHROOM. PT REPORTS PAIN IN LOWER BACK, STATES IT RELATED TO TUMORS, MEDICATED X2 WITH ROXICODONE AND BACK RUBS. PT REPORTS FEELING "BOARDERLINE" NAUSEA T/O SHIFT, DENIES NEEDS FOR MEDICATION. PT DENEIS SOB, >90% ON RA. POWERGLIDER TO RUE REMOVED DURING SHIFT DUE TO DVT AND 2 SVT IN RUE. PT RECEIVING XARELTO. PER DR FORD ORDER, NOTIFIED DR ALVARES OFFICE OF NEED TO USE MEDIPORT. DR EMILIANO ALVARES OFFICE STATE IT WAS OK TO USE MEDIPORT WITH THE HEPARIN FLUSH PROTOCOL, DR FORD NOTIFIED. MEDIPORT ACCESSED. CLINIMIX RESTARTED, PER DR FORD, CLINIMIX TO BE D/C ONCE THIS BAG IS COMPLETED. ADVANCED DIET TO REGULAR. VSS. NO OTHER ACUTE CHANGES NOTED. REPORT GIVEN TO ONCOMING RN.
--- NOTE | 2018-06-19 07:35 | NUR ---
SHIFT SUMMARY: PT IS A&O, 1 PER ASSIST, CALL LIGHT APPROP. REDNESS/SWELLING/PAIN TO RUE NOTED. MEDIPORT TO R CHEST WALL IS ACCESSED; RUNNING LAST BAG OF CLINIMIX @ 50 ML/HR. AFTER THAT, CLINIMIX IS DC'D AND PT ADV DIET TOLERATED. REGULAR DIET STARTING THIS AM. PT TREATED FOR NAUSEA 1X c PRN ZOFRAN, AND TREATED FOR PAIN 1X c PRN 10MG OXYCODONE. PT SLEPT WELL THROUGH THE NIGHT. PT REPORTS SHE HAS NOT HAD A BM X3 DAYS, HOWEVER, THIS IS MORE REGULAR FOR HER. NO OTHER CHANGES TO REPORT. WILL CONT TO MONITOR AND PROVIDE CARE UNTIL PRESUMED BY ONCOMING RN.
[2018-06-19 10:33] LABS: BASOPHILS ABSOLUTE AUTO 0.02 K/mm3 (0.00-0.23); BASOPHILS PERCENT AUTO 1 % (0-2); EOSINOPHILS ABSOLUTE AUTO 0.43 K/mm3 (0.00-0.68); EOSINOPHILS PERCENT AUTO 11 % (0-6); Hemoglobin 9.2 g/dL (11.5-16.0); IMMATURE GRAN PERCENT AUTO 0 % (0-1); LYMPHOCYTES ABSOLUTE AUTO 0.67 K/mm3 (0.84-5.20); LYMPHOCYTES PERCENT AUTO 17 % (21-46); MONOCYTES ABSOLUTE AUTO 0.59 K/mm3 (0.16-1.47); MONOCYTES PERCENT AUTO 15 % (4-13); Mean Corpuscular HGB Conc 32.9 g/dL (31.5-36.5); Mean Corpuscular Volume 88 fL (80-100); Mean Platelet Volume 10.4 fL (9.1-12.4); NEUTROPHILS PERCENT AUTO 57 % (41-73); Platelet Count 206 K/mm3 (150-400); RDW Coefficient Variation 12.7 % (11.7-14.2); RDW Standard Deviation 40.8 fL (35.1-46.3); Red Blood Cell Count 3.17 M/mm3 (3.80-5.20); White Blood Cell Count 4.01 K/mm3 (4.00-11.30)
--- NOTE | 2018-06-19 13:47 | NUR ---
PATIENT GAVE STUDENT NURSE PERMISSION TO PERFORM CARE ON 06/20/18.
--- NOTE | 2018-06-19 15:40 | NUR ---
SUMMARY PT IS A/O X4, PLEASANT/COOPERATIVE AFFECT. SHE HAS NOT HAD DIARRHEA OR BM X3 DAYS, EDITORIAL CLERK REMOVE NOROVIRUS PRECAUTIONS TODAY. SHE STATE CONTINUING LOW BACK PAIN R/T "BACK TUMORS", R ARM PAIN R/T DVT. HAVE GIVEN PRN OXYCODONE FOR RELIEF/CONTROL. R ARM SOMEWHAT SWOLLEN, SHE IS ENCOURAGED TO ELEVATE. NO NAUSEA THIS AM, DR INCREASE DIET TO REGULAR, SHE HAS TOLERATED WELL. STOP CLINIMIX, [facility] PATENT, HEP LOCKED. VSS.
--- NOTE | 2018-06-20 04:39 | NUR ---
SHIFT SUMMARY PT SLEPT WELL DURING THE NIGHT. RECEIVED PAIN MEDICATION AT BEDTIME FOR BACK. UP TO BATHROOM X1 THIS SHIFT. NO ACUTE EVENTS NOTED DURING THE NIGHT. WILL CONTINUE TO MONITOR.
--- NOTE | 2018-06-21 00:07 | NUR ---
pt says powerglide was removed and no s/sx of bleeding noted. rt radial pulse strong.
--- NOTE | 2018-06-21 06:36 | NUR ---
pt feeling better as far as strenght and denies need for pain med this am. up with sba to bathroom with fairly steady gait. oral mucosa blistered and magic mouthwasth use this AM with helpful effect on oral pain. no s/sx of bleeding on xaralto 15 mg po bid for rt ue dvt. pulses good rt ue rt radial decreased edema and pain to site. PT lives with elderly parents who she says leave town frequently. she says she has not qualified for caregiver due to Parents being available to assist her but she needs more assist than they can give. appetite still poor but nausea resolved.
--- NOTE | 2018-06-21 19:49 | NUR ---
SHIFT SUMMARY- NEW MEDICATIONS ORDERED BY DR FORD THIS MORNING. PT HAS BEEN MEIDCATED TWICE FOR PAIN, PAIN IN HER LIPS IS CONSTANT. PT IS PUTTING BARRIER CREAM ON HER LIP TO PREVENT IT FRON STICKING TO CUPS AND UTENSILS WHEN SHE EATS HER FOOD, CLOTHING PROTECTOR PROVIDED AT DINNER TIME, PT TENDS TO DRIBBLE D/T LACK OF MOBILITY OF HER LIP BECAUSE OF SORES. ACYCLOVIR STARTED TODAY. PT ALERT, ORIENTED AND INDEPENDENT IN THE ROOM. CALL LIGHT IN REACH, BEDSIDE REPORT COMPLETE.
[2018-06-22] MEDS ORDERED: GABA100 PO (16:22)
[2018-06-22] MEDS ORDERED: ACYC400 PO (16:23)
[2018-06-22] MEDS ORDERED: DOCU100 PO (16:23)
[2018-06-22] MEDS ORDERED: FOLI1 PO (16:24)
[2018-06-22] MEDS ORDERED: THERAPEUTIC-M1 EAC3 PO (16:46)
[2018-06-22] MEDS ORDERED: Thiamine HCl100 MG PO (16:47)
[2018-06-22] MEDS ORDERED: ELIQUIS5 MG PO (16:47)
--- NOTE | 2018-06-22 17:14 | NUR ---
SPOKE TO DR FORD RECIEVED VERBAL ORDER FOR COMPOUND MEDICATION XILOCAINE NILSTAT MALOXX PLUS BENADRYL ELIXER PREDNISONE LIQUID 5-10 ML TID MOUTH/THROAT FOR 7 DAYS CALLED IN TO COMPOUND PHARMACY CALLED LA AT [facility] AND CANCELED INGREDIENT MEDICATIONS THAT WERE ORDERED INDIVIDUALLY PER DR FORD GI COCKTAIL, NYSTATIN SOLUTION, AND PREDNISONE SOLUTION. CALLED IN VERBAL ORDER TO LA AT [facility] FOR NYSTATIN POWDER PER DR FORD.
--- NOTE | 2018-06-22 18:12 | NUR ---
DISCHARGE NOTE- PT DISCHARGED HOME, HER FATHER CAME TO PICK HER UP, PT WAS GIVEN VERBAL AND WRITTEN DISCHARGE INSTRUCTIONS AND ACKNOWLEDGED UNDERSTANDING OF THEM. PT INSTRUCTED TO GO DIRECTLY TO THE COMPOUND PHARMACY THEY CLOSE 30MIN AFTER PT WAS DISCHARGED. ALL MEDS FAXED TO [facility] IN [place]. RECIEVED A CALL FROM PHARMACY FAX NOT RECIEVED CALLED PHARMACIST LA AND GAVE VERBAL ORDER FOR ALL ORDERED MEDICATIONS WITH FILL QUANTITY. PT HAS CONTACT INFO IF MORE QUESTIONS ARRISE.
== END 2018-06-22 16:58 | disposition home or self-care (01) | DRG 392 ==
LOC: ER 18:07 → MEDS 18:08 → PCU 06-14 01:50 → MEDS 06-14 22:50
PROVIDERS: Family Medicine; Hospitalist; Internal Medicine; Physician Assistant; ADMIT Hospitalist
PROC: 05PY33Z Removal of Infusion Device from Upper Vein, Percutaneous Approach (ICD-10-PCS; principal; 2018-06-18)
DX: A08.11 Acute gastroenteropathy due to Norwalk agent (principal); C34.11 Malignant neoplasm of upper lobe, right bronchus or lung; C79.31 Secondary malignant neoplasm of brain; C79.51 Secondary malignant neoplasm of bone; C77.1 Secondary and unspecified malignant neoplasm of intrathoracic lymph nodes; E87.2 Acidosis; E44.0 Moderate protein-calorie malnutrition; I82.621 Acute embolism and thrombosis of deep veins of right upper extremity; E83.42 Hypomagnesemia; E87.6 Hypokalemia; F32.9 Major depressive disorder, single episode, unspecified; L40.50 Arthropathic psoriasis, unspecified; Z92.21 Personal history of antineoplastic chemotherapy; Z92.3 Personal history of irradiation; K12.31 Oral mucositis (ulcerative) due to antineoplastic therapy; B00.1 Herpesviral vesicular dermatitis; G89.4 Chronic pain syndrome; Z85.3 Personal history of malignant neoplasm of breast; M79.7 Fibromyalgia; Z87.891 Personal history of nicotine dependence; E86.9 Volume depletion, unspecified; J44.9 Chronic obstructive pulmonary disease, unspecified
CPT/HCPCS: 36415; 80048; 80053; 83690; 83735; 84100; 85025; 87507; 93971; 96361; 96372; 96374; 96375; 96376; 99284-25; C9113; G0378; J1642; J1650; J2405; J2550; J3475; J7030; J7131

== ENCOUNTER 2018-07-08 19:06 | Inpatient (IN) | payer OTHER ==
[~2018-07-08] VITALS: Ht 172.7 cm; Wt 69.3 kg
[~2018-07-08 19:06] MED LIST changes: +ACYC400 PO; +DOCU100 PO; +ELIQUIS5 MG PO; +FOLI1 PO; +GABA100 PO; +THERAPEUTIC-M1 EAC3 PO; +Thiamine HCl100 MG PO
[2018-07-08] MEDS ORDERED: XARELTO15 MG PO (19:44)
[2018-07-08 20:12] LABS: BASOPHILS ABSOLUTE AUTO 0.02 K/mm3 (0.00-0.23); BASOPHILS PERCENT AUTO 1 % (0-2); EOSINOPHILS ABSOLUTE AUTO 0.23 K/mm3 (0.00-0.68); EOSINOPHILS PERCENT AUTO 8 % (0-6); Hemoglobin 12.3 g/dL (11.5-16.0); IMMATURE GRAN ABSOLUTE AUTO 0.01 K/mm3 (0.00-0.10); IMMATURE GRAN PERCENT AUTO 0 % (0-1); LYMPHOCYTES ABSOLUTE AUTO 0.78 K/mm3 (0.84-5.20); LYMPHOCYTES PERCENT AUTO 27 % (21-46); MONOCYTES ABSOLUTE AUTO 0.47 K/mm3 (0.16-1.47); MONOCYTES PERCENT AUTO 16 % (4-13); Mean Corpuscular HGB 29.6 pg (26.0-34.0); Mean Corpuscular HGB Conc 32.4 g/dL (31.5-36.5); Mean Corpuscular Volume 91 fL (80-100); Mean Platelet Volume 10.3 fL (9.1-12.4); NEUTROPHILS ABSOLUTE AUTO 1.42 K/mm3 (1.96-9.15); NEUTROPHILS PERCENT AUTO 49 % (41-73); Platelet Count 181 K/mm3 (150-400); RDW Coefficient Variation 12.9 % (11.7-14.2); RDW Standard Deviation 42.9 fL (35.1-46.3); Red Blood Cell Count 4.16 M/mm3 (3.80-5.20); White Blood Cell Count 2.93 K/mm3 (4.00-11.30)
[2018-07-08 20:30] LABS: Alanine Aminotransfer (ALT/SGP 26 U/L (12-78); Albumin, Blood 2.8 g/dL (3.4-5.0); Albumin/Globulin Ratio 0.9 (0.8-1.8); Alk Phos 43 U/L (50-136); Anion Gap 5 mmol/L (6-16); Aspartate Aminotrans (AST/SGOT 34 U/L (12-37); Bilirubin, Total 0.4 mg/dL (0.1-1.0); Blood Urea Nitrogen 11 mg/dL (8-24); Bun/Creatinine Ratio 12.8 (12.0-20.0); CO2, Blood 29 mmol/L (21-32); Calcium, Blood 9.1 mg/dL (8.5-10.1); Chloride, Blood 106 mmol/L (98-108); Creatinine, Blood 0.86 mg/dL (0.40-1.00); Glomerular Filtration Rate >60 (60-); Glucose, Blood 85 mg/dL (70-99); Potassium, Blood 3.7 mmol/L (3.5-5.5); Sodium, Blood 140 mmol/L (136-145); Total Protein, Blood 5.8 g/dL (6.4-8.2)
[2018-07-08 21:46] LABS: Influenza A Negative (NEGATIVE); Influenza B Negative (NEGATIVE)
[2018-07-08 23:43] LABS: Source, Urine Catheter
[2018-07-09 00:02] LABS: Bilirubin, Urine Neg (Neg); Blood, Urine 2+ (Neg); Glucose Qualitative, Urine Neg (Neg); Ketones, Urine Neg (Neg); Leukocyte Esterase, Urine 2+ (Neg); Nitrite, Urine Neg (Neg); Protein, Urine Neg (Neg); Specific Gravity, Urine 1.015 (1.003-1.022); Urobilinogen, Urine NORM (Normal); pH, Urine 6.5 (5.0-8.0)
[2018-07-09 00:29] LABS: Appearance, Urine Clear (Clear); Color, Urine Pale Yellow (P-Yellow)
[2018-07-09 00:30] LABS: Bacteria Mod /hpf; Red Blood Cells, Urine Rare /hpf (0-2); Squamous Epithelial Cells Rare /hpf (Few)
[2018-07-09 05:17] LABS: Hematocrit 39.3 % (33.0-51.0); Hemoglobin 12.7 g/dL (11.5-16.0); Mean Corpuscular HGB 29.2 pg (26.0-34.0); Mean Corpuscular HGB Conc 32.3 g/dL (31.5-36.5); Mean Corpuscular Volume 90 fL (80-100); Mean Platelet Volume 10.4 fL (9.1-12.4); Platelet Count 196 K/mm3 (150-400); RDW Coefficient Variation 12.9 % (11.7-14.2); RDW Standard Deviation 42.9 fL (35.1-46.3); Red Blood Cell Count 4.35 M/mm3 (3.80-5.20); White Blood Cell Count 4.11 K/mm3 (4.00-11.30)
[2018-07-09 05:48] LABS: Alanine Aminotransfer (ALT/SGP 26 U/L (12-78); Albumin, Blood 2.9 g/dL (3.4-5.0); Alk Phos 45 U/L (50-136); Anion Gap 10 mmol/L (6-16); Aspartate Aminotrans (AST/SGOT 36 U/L (12-37); Bilirubin, Total 0.6 mg/dL (0.1-1.0); Blood Urea Nitrogen 10 mg/dL (8-24); Bun/Creatinine Ratio 11.2 (12.0-20.0); CO2, Blood 24 mmol/L (21-32); Calcium, Blood 8.9 mg/dL (8.5-10.1); Chloride, Blood 108 mmol/L (98-108); Creatinine, Blood 0.89 mg/dL (0.40-1.00); Glomerular Filtration Rate >60 (60-); Glucose, Blood 91 mg/dL (70-99); Potassium, Blood 3.3 mmol/L (3.5-5.5); Sodium, Blood 142 mmol/L (136-145); Total Protein, Blood 5.9 g/dL (6.4-8.2)
[2018-07-09 06:04] LABS: Source, Urine Clean Catch
[2018-07-09 06:39] LABS: Bilirubin, Urine Neg (Neg); Blood, Urine 3+ (Neg); Glucose Qualitative, Urine Neg (Neg); Ketones, Urine 1+ (Neg); Leukocyte Esterase, Urine 3+ (Neg); Nitrite, Urine Pos (Neg); Protein, Urine 1+ (Neg); Specific Gravity, Urine 1.015 (1.003-1.022); Urobilinogen, Urine NORM (Normal)
[2018-07-09 06:48] LABS: Appearance, Urine Hazy (Clear); Color, Urine Yellow (P-Yellow)
[2018-07-09 06:52] LABS: White Blood Cells, Urine 25-50 /hpf (0-5)
[2018-07-09 06:53] LABS: Bacteria Many /hpf; Squamous Epithelial Cells Rare /hpf (Few)
[2018-07-09 07:53] LABS: Campylobacter Sp Not Detected (NOT DETECT); Enteroaggregative E. coli-EAEC Not Detected (NOT DETECT); Enteropathogenic E. coli-EPEC Not Detected (NOT DETECT); Enterotoxigenic E. coli-ETEC Not Detected (NOT DETECT); Plesiomonas Shigelloides Not Detected (NOT DETECT); Salmonella Sp Not Detected (NOT DETECT); Shiga Toxin-prod E. coli-STEC Not Detected (NOT DETECT); Vibrio Cholerae Not Detected (NOT DETECT); Vibrio Sp Not Detected (NOT DETECT); Yersinia Enterocolitica Not Detected (NOT DETECT)
[2018-07-09 07:54] LABS: Adenovirus F 40/41 Not Detected (NOT DETECT); Astrovirus Not Detected (NOT DETECT); Cryptosporidium Not Detected (NOT DETECT); Cyclospora Cayetanensis Not Detected (NOT DETECT); E. Coli O157 Not Detected (NOT DETECT); Entamoeba Histolytica Not Detected (NOT DETECT); Giardia Lamblia Not Detected (NOT DETECT); Norovirus GI/GII Not Detected (NOT DETECT); Rotavirus A Not Detected (NOT DETECT); Sapovirus Not Detected (NOT DETECT); Shigella/Enteroin E. coli-EIEC Not Detected (NOT DETECT)
[2018-07-10 05:36] LABS: BASOPHILS ABSOLUTE AUTO 0.04 K/mm3 (0.00-0.23); BASOPHILS PERCENT AUTO 1 % (0-2); EOSINOPHILS ABSOLUTE AUTO 0.64 K/mm3 (0.00-0.68); EOSINOPHILS PERCENT AUTO 8 % (0-6); Hematocrit 45.8 % (33.0-51.0); Hemoglobin 14.8 g/dL (11.5-16.0); IMMATURE GRAN ABSOLUTE AUTO 0.03 K/mm3 (0.00-0.10); IMMATURE GRAN PERCENT AUTO 0 % (0-1); LYMPHOCYTES ABSOLUTE AUTO 1.12 K/mm3 (0.84-5.20); LYMPHOCYTES PERCENT AUTO 13 % (21-46); MONOCYTES ABSOLUTE AUTO 1.09 K/mm3 (0.16-1.47); MONOCYTES PERCENT AUTO 13 % (4-13); Mean Corpuscular HGB Conc 32.3 g/dL (31.5-36.5); Mean Corpuscular Volume 90 fL (80-100); NEUTROPHILS ABSOLUTE AUTO 5.47 K/mm3 (1.96-9.15); NEUTROPHILS PERCENT AUTO 65 % (41-73); Platelet Count 270 K/mm3 (150-400); RDW Coefficient Variation 13.5 % (11.7-14.2); White Blood Cell Count 8.39 K/mm3 (4.00-11.30)
[2018-07-10 06:08] LABS: Alanine Aminotransfer (ALT/SGP 19 U/L (12-78); Albumin, Blood 2.4 g/dL (3.4-5.0); Albumin/Globulin Ratio 0.8 (0.8-1.8); Alk Phos 39 U/L (50-136); Anion Gap 10 mmol/L (6-16); Aspartate Aminotrans (AST/SGOT 25 U/L (12-37); Bilirubin, Total 0.6 mg/dL (0.1-1.0); Blood Urea Nitrogen 12 mg/dL (8-24); Bun/Creatinine Ratio 12.1 (12.0-20.0); CO2, Blood 20 mmol/L (21-32); Calcium, Blood 8.2 mg/dL (8.5-10.1); Chloride, Blood 108 mmol/L (98-108); Globulin, Blood 2.9 g/dL (2.2-4.0); Glomerular Filtration Rate >60 (60-); Glucose, Blood 115 mg/dL (70-99); Potassium, Blood 3.7 mmol/L (3.5-5.5); Sodium, Blood 138 mmol/L (136-145); Total Protein, Blood 5.3 g/dL (6.4-8.2)
[2018-07-11 05:32] LABS: BASOPHILS ABSOLUTE AUTO 0.03 K/mm3 (0.00-0.23); BASOPHILS PERCENT AUTO 1 % (0-2); EOSINOPHILS ABSOLUTE AUTO 0.68 K/mm3 (0.00-0.68); EOSINOPHILS PERCENT AUTO 11 % (0-6); Hematocrit 39.2 % (33.0-51.0); Hemoglobin 12.5 g/dL (11.5-16.0); IMMATURE GRAN ABSOLUTE AUTO 0.02 K/mm3 (0.00-0.10); IMMATURE GRAN PERCENT AUTO 0 % (0-1); LYMPHOCYTES ABSOLUTE AUTO 1.08 K/mm3 (0.84-5.20); LYMPHOCYTES PERCENT AUTO 18 % (21-46); MONOCYTES ABSOLUTE AUTO 0.75 K/mm3 (0.16-1.47); MONOCYTES PERCENT AUTO 12 % (4-13); Mean Corpuscular HGB Conc 31.9 g/dL (31.5-36.5); Mean Corpuscular Volume 91 fL (80-100); Mean Platelet Volume 10.5 fL (9.1-12.4); NEUTROPHILS ABSOLUTE AUTO 3.49 K/mm3 (1.96-9.15); NEUTROPHILS PERCENT AUTO 58 % (41-73); Platelet Count 206 K/mm3 (150-400); RDW Coefficient Variation 13.5 % (11.7-14.2); RDW Standard Deviation 45.4 fL (35.1-46.3); Red Blood Cell Count 4.31 M/mm3 (3.80-5.20); White Blood Cell Count 6.05 K/mm3 (4.00-11.30)
[2018-07-11 06:33] LABS: Albumin, Blood 2.2 g/dL (3.4-5.0); Albumin/Globulin Ratio 0.7 (0.8-1.8); Bilirubin, Total 0.6 mg/dL (0.1-1.0); Bun/Creatinine Ratio 13.2 (12.0-20.0); Calcium, Blood 8.5 mg/dL (8.5-10.1); Creatinine, Blood 1.06 mg/dL (0.40-1.00); Globulin, Blood 3.2 g/dL (2.2-4.0); Potassium, Blood 4.1 mmol/L (3.5-5.5); Total Protein, Blood 5.4 g/dL (6.4-8.2)
[2018-07-12 09:11] LABS: BASOPHILS ABSOLUTE AUTO 0.01 K/mm3 (0.00-0.23); BASOPHILS PERCENT AUTO 0 % (0-2); EOSINOPHILS ABSOLUTE AUTO 0.45 K/mm3 (0.00-0.68); EOSINOPHILS PERCENT AUTO 13 % (0-6); Hemoglobin 9.9 g/dL (11.5-16.0); IMMATURE GRAN PERCENT AUTO 0 % (0-1); LYMPHOCYTES ABSOLUTE AUTO 0.82 K/mm3 (0.84-5.20); LYMPHOCYTES PERCENT AUTO 24 % (21-46); MONOCYTES ABSOLUTE AUTO 0.34 K/mm3 (0.16-1.47); MONOCYTES PERCENT AUTO 10 % (4-13); Mean Corpuscular HGB 28.8 pg (26.0-34.0); Mean Corpuscular HGB Conc 31.9 g/dL (31.5-36.5); Mean Corpuscular Volume 90 fL (80-100); Mean Platelet Volume 10.5 fL (9.1-12.4); NEUTROPHILS ABSOLUTE AUTO 1.77 K/mm3 (1.96-9.15); NEUTROPHILS PERCENT AUTO 52 % (41-73); Platelet Count 167 K/mm3 (150-400); RDW Coefficient Variation 13.2 % (11.7-14.2); RDW Standard Deviation 43.6 fL (35.1-46.3); Red Blood Cell Count 3.44 M/mm3 (3.80-5.20); White Blood Cell Count 3.39 K/mm3 (4.00-11.30)
[2018-07-12 09:41] LABS: Alanine Aminotransfer (ALT/SGP 14 U/L (12-78); Albumin, Blood 2.2 g/dL (3.4-5.0); Albumin/Globulin Ratio 0.8 (0.8-1.8); Alk Phos 31 U/L (50-136); Anion Gap 7 mmol/L (6-16); Aspartate Aminotrans (AST/SGOT 15 U/L (12-37); Bilirubin, Total 0.4 mg/dL (0.1-1.0); Blood Urea Nitrogen 19 mg/dL (8-24); Bun/Creatinine Ratio 26.6 (12.0-20.0); CO2, Blood 23 mmol/L (21-32); Chloride, Blood 107 mmol/L (98-108); Creatinine, Blood 0.71 mg/dL (0.40-1.00); Globulin, Blood 2.8 g/dL (2.2-4.0); Glomerular Filtration Rate >60 (60-); Glucose, Blood 100 mg/dL (70-99); Magnesium, Blood 1.7 mg/dL (1.6-2.4); Phosphorus, Blood 3.3 mg/dL (2.5-4.9); Potassium, Blood 3.7 mmol/L (3.5-5.5); Sodium, Blood 137 mmol/L (136-145); Triglycerides 112 mg/dL (30-160)
[2018-07-13 05:03] LABS: BASOPHILS ABSOLUTE AUTO 0.02 K/mm3 (0.00-0.23); BASOPHILS PERCENT AUTO 1 % (0-2); EOSINOPHILS ABSOLUTE AUTO 0.29 K/mm3 (0.00-0.68); EOSINOPHILS PERCENT AUTO 11 % (0-6); Hematocrit 30.7 % (33.0-51.0); Hemoglobin 9.7 g/dL (11.5-16.0); IMMATURE GRAN ABSOLUTE AUTO 0.01 K/mm3 (0.00-0.10); IMMATURE GRAN PERCENT AUTO 0 % (0-1); LYMPHOCYTES ABSOLUTE AUTO 0.55 K/mm3 (0.84-5.20); LYMPHOCYTES PERCENT AUTO 20 % (21-46); MONOCYTES ABSOLUTE AUTO 0.38 K/mm3 (0.16-1.47); MONOCYTES PERCENT AUTO 14 % (4-13); Mean Corpuscular HGB 28.9 pg (26.0-34.0); Mean Corpuscular HGB Conc 31.6 g/dL (31.5-36.5); Mean Corpuscular Volume 91 fL (80-100); NEUTROPHILS ABSOLUTE AUTO 1.51 K/mm3 (1.96-9.15); NEUTROPHILS PERCENT AUTO 55 % (41-73); Platelet Count 158 K/mm3 (150-400); RDW Standard Deviation 43.5 fL (35.1-46.3); Red Blood Cell Count 3.36 M/mm3 (3.80-5.20); White Blood Cell Count 2.76 K/mm3 (4.00-11.30)
[2018-07-13 05:23] LABS: Alanine Aminotransfer (ALT/SGP 12 U/L (12-78); Albumin, Blood 2.1 g/dL (3.4-5.0); Albumin/Globulin Ratio 0.8 (0.8-1.8); Alk Phos 30 U/L (50-136); Anion Gap 5 mmol/L (6-16); Aspartate Aminotrans (AST/SGOT 16 U/L (12-37); Bilirubin, Total 0.5 mg/dL (0.1-1.0); Blood Urea Nitrogen 18 mg/dL (8-24); Bun/Creatinine Ratio 24.7 (12.0-20.0); CO2, Blood 26 mmol/L (21-32); Calcium, Blood 8.2 mg/dL (8.5-10.1); Chloride, Blood 107 mmol/L (98-108); Creatinine, Blood 0.73 mg/dL (0.40-1.00); Globulin, Blood 2.6 g/dL (2.2-4.0); Glomerular Filtration Rate >60 (60-); Glucose, Blood 98 mg/dL (70-99); Magnesium, Blood 1.8 mg/dL (1.6-2.4); Phosphorus, Blood 4.1 mg/dL (2.5-4.9); Potassium, Blood 3.8 mmol/L (3.5-5.5); Sodium, Blood 138 mmol/L (136-145); Total Protein, Blood 4.7 g/dL (6.4-8.2)
[2018-07-14 05:53] LABS: Magnesium, Blood 1.8 mg/dL (1.6-2.4)
[2018-07-14 05:54] LABS: Phosphorus, Blood 4.9 mg/dL (2.5-4.9)
[2018-07-15 05:32] LABS: BASOPHILS ABSOLUTE AUTO 0.02 K/mm3 (0.00-0.23); BASOPHILS PERCENT AUTO 1 % (0-2); EOSINOPHILS ABSOLUTE AUTO 0.23 K/mm3 (0.00-0.68); EOSINOPHILS PERCENT AUTO 9 % (0-6); Hematocrit 30.4 % (33.0-51.0); Hemoglobin 9.9 g/dL (11.5-16.0); IMMATURE GRAN PERCENT AUTO 0 % (0-1); LYMPHOCYTES ABSOLUTE AUTO 0.44 K/mm3 (0.84-5.20); LYMPHOCYTES PERCENT AUTO 16 % (21-46); MONOCYTES ABSOLUTE AUTO 0.42 K/mm3 (0.16-1.47); MONOCYTES PERCENT AUTO 15 % (4-13); Mean Corpuscular HGB 28.9 pg (26.0-34.0); Mean Corpuscular HGB Conc 32.6 g/dL (31.5-36.5); Mean Corpuscular Volume 89 fL (80-100); Mean Platelet Volume 10.7 fL (9.1-12.4); NEUTROPHILS ABSOLUTE AUTO 1.61 K/mm3 (1.96-9.15); NEUTROPHILS PERCENT AUTO 59 % (41-73); Platelet Count 196 K/mm3 (150-400); RDW Coefficient Variation 12.9 % (11.7-14.2); RDW Standard Deviation 41.7 fL (35.1-46.3); Red Blood Cell Count 3.43 M/mm3 (3.80-5.20); White Blood Cell Count 2.72 K/mm3 (4.00-11.30)
[2018-07-15 05:55] LABS: Alanine Aminotransfer (ALT/SGP 39 U/L (12-78); Albumin, Blood 2.3 g/dL (3.4-5.0); Albumin/Globulin Ratio 0.8 (0.8-1.8); Alk Phos 37 U/L (50-136); Anion Gap 5 mmol/L (6-16); Aspartate Aminotrans (AST/SGOT 66 U/L (12-37); Bilirubin, Total 0.5 mg/dL (0.1-1.0); Blood Urea Nitrogen 18 mg/dL (8-24); CO2, Blood 28 mmol/L (21-32); Calcium, Blood 8.8 mg/dL (8.5-10.1); Chloride, Blood 106 mmol/L (98-108); Creatinine, Blood 0.82 mg/dL (0.40-1.00); Globulin, Blood 2.9 g/dL (2.2-4.0); Glomerular Filtration Rate >60 (60-); Glucose, Blood 106 mg/dL (70-99); Potassium, Blood 4.1 mmol/L (3.5-5.5); Sodium, Blood 139 mmol/L (136-145); Total Protein, Blood 5.2 g/dL (6.4-8.2)
[2018-07-16 05:23] LABS: BASOPHILS ABSOLUTE AUTO 0.02 K/mm3 (0.00-0.23); BASOPHILS PERCENT AUTO 1 % (0-2); EOSINOPHILS ABSOLUTE AUTO 0.27 K/mm3 (0.00-0.68); EOSINOPHILS PERCENT AUTO 8 % (0-6); Hematocrit 29.9 % (33.0-51.0); Hemoglobin 9.8 g/dL (11.5-16.0); IMMATURE GRAN ABSOLUTE AUTO 0.01 K/mm3 (0.00-0.10); IMMATURE GRAN PERCENT AUTO 0 % (0-1); LYMPHOCYTES ABSOLUTE AUTO 0.58 K/mm3 (0.84-5.20); LYMPHOCYTES PERCENT AUTO 16 % (21-46); MONOCYTES PERCENT AUTO 17 % (4-13); Mean Corpuscular HGB 29.4 pg (26.0-34.0); Mean Corpuscular HGB Conc 32.8 g/dL (31.5-36.5); Mean Corpuscular Volume 90 fL (80-100); Mean Platelet Volume 10.2 fL (9.1-12.4); NEUTROPHILS ABSOLUTE AUTO 2.13 K/mm3 (1.96-9.15); NEUTROPHILS PERCENT AUTO 59 % (41-73); Platelet Count 230 K/mm3 (150-400); RDW Coefficient Variation 12.8 % (11.7-14.2); Red Blood Cell Count 3.33 M/mm3 (3.80-5.20); White Blood Cell Count 3.61 K/mm3 (4.00-11.30)
[2018-07-16 05:57] LABS: Magnesium, Blood 1.9 mg/dL (1.6-2.4)
[2018-07-16 06:06] LABS: Alanine Aminotransfer (ALT/SGP 34 U/L (12-78); Albumin, Blood 2.4 g/dL (3.4-5.0); Albumin/Globulin Ratio 0.8 (0.8-1.8); Alk Phos 38 U/L (50-136); Anion Gap 3 mmol/L (6-16); Aspartate Aminotrans (AST/SGOT 44 U/L (12-37); Bilirubin, Total 0.4 mg/dL (0.1-1.0); Blood Urea Nitrogen 21 mg/dL (8-24); Bun/Creatinine Ratio 25.1 (12.0-20.0); CO2, Blood 30 mmol/L (21-32); Calcium, Blood 8.9 mg/dL (8.5-10.1); Chloride, Blood 107 mmol/L (98-108); Creatinine, Blood 0.84 mg/dL (0.40-1.00); Globulin, Blood 3.1 g/dL (2.2-4.0); Glomerular Filtration Rate >60 (60-); Glucose, Blood 99 mg/dL (70-99); Potassium, Blood 4.1 mmol/L (3.5-5.5); Sodium, Blood 140 mmol/L (136-145); Total Protein, Blood 5.5 g/dL (6.4-8.2)
[2018-07-18] MEDS ORDERED: BISA10S PR (15:10)
[2018-07-18] MEDS ORDERED: XARELTO20 MG PO (15:10)
[2018-07-18] MEDS ORDERED: MEGESTROL400 MG/10 PO (15:12)
[2018-07-18] MEDS ORDERED: ONDA4ODT MM (15:12)
[2018-07-18] MEDS ORDERED: MIRALAX17 GM PO (15:13)
[2018-07-18] MEDS ORDERED: SACC250C PO (15:14)
[2018-07-18] MEDS ORDERED: Carafate1 GM/10 ML PO (15:19)
== END 2018-07-18 16:53 | disposition home or self-care (01) | DRG 392 ==
LOC: ER 19:06 → MEDS 23:37 → SURS 23:50 → MEDS 23:50 → ENPENDDIS 07-18 13:11 → EDPENDDIS 07-18 13:11 → MEDS 07-18 16:53
PROVIDERS: Emergency Medicine; Family Medicine; Hospitalist; ADMIT Internal Medicine
DX: K52.9 Noninfective gastroenteritis and colitis, unspecified (principal); C34.90 Malignant neoplasm of unspecified part of unspecified bronchus or lung; C79.31 Secondary malignant neoplasm of brain; C78.7 Secondary malignant neoplasm of liver and intrahepatic bile duct; N39.0 Urinary tract infection, site not specified; E46 Unspecified protein-calorie malnutrition; Z90.12 Acquired absence of left breast and nipple; Z87.891 Personal history of nicotine dependence; E86.0 Dehydration; L40.9 Psoriasis, unspecified; K12.30 Oral mucositis (ulcerative), unspecified; K12.1 Other forms of stomatitis; G89.4 Chronic pain syndrome; E88.09 Other disorders of plasma-protein metabolism, not elsewhere classified; K59.00 Constipation, unspecified
CPT/HCPCS: 36415; 70450; 74177; 80053; 81001; 82947; 83690; 83735; 84100; 84478; 85025; 85027; 87077; 87086; 87186; 87507; 87804; 96361; 96374; 97110; 97116; 97162; 97165; 97530; 99285-25; C9113; J0696; J1170; J1200; J1642; J1650; J1956; J2405; J2550; J3411; J7030; J7040; J7050; Q9967

== ENCOUNTER 2018-10-04 04:24 | Inpatient (IN) | payer OTHER ==
[~2018-10-04] VITALS: Ht 172.7 cm; Wt 71.9 kg
[~2018-10-04 04:24] MED LIST changes: +BISA10S PR; +Carafate1 GM/10 ML PO; +MEGESTROL400 MG/10 PO; +MIRALAX17 GM PO; +SACC250C PO; +XARELTO15 MG PO; +XARELTO20 MG PO
[2018-10-04 05:15] LABS: BASOPHILS ABSOLUTE AUTO 0.05 K/mm3 (0.00-0.23); BASOPHILS PERCENT AUTO 1 % (0-2); EOSINOPHILS ABSOLUTE AUTO 0.18 K/mm3 (0.00-0.68); EOSINOPHILS PERCENT AUTO 3 % (0-6); Hemoglobin 13.2 g/dL (11.5-16.0); IMMATURE GRAN ABSOLUTE AUTO 0.01 K/mm3 (0.00-0.10); IMMATURE GRAN PERCENT AUTO 0 % (0-1); LYMPHOCYTES PERCENT AUTO 23 % (21-46); MONOCYTES ABSOLUTE AUTO 0.81 K/mm3 (0.16-1.47); MONOCYTES PERCENT AUTO 11 % (4-13); Mean Corpuscular HGB 28.1 pg (26.0-34.0); Mean Corpuscular Volume 85 fL (80-100); NEUTROPHILS ABSOLUTE AUTO 4.58 K/mm3 (1.96-9.15); NEUTROPHILS PERCENT AUTO 62 % (41-73); Platelet Count 317 K/mm3 (150-400); RDW Coefficient Variation 12.2 % (11.7-14.2); Red Blood Cell Count 4.69 M/mm3 (3.80-5.20); White Blood Cell Count 7.33 K/mm3 (4.00-11.30)
[2018-10-04 05:32] LABS: International Normalized Ratio 1.21; Prothrombin Time Results 12.6 Sec (9.7-11.5)
[2018-10-04 05:35] LABS: Troponin I 0.015 ng/mL (0.000-0.040)
[2018-10-04 05:45] LABS: Albumin, Blood 3.1 g/dL (3.4-5.0); Albumin/Globulin Ratio 0.8 (0.8-1.8); Bilirubin, Total 0.7 mg/dL (0.1-1.0); Bun/Creatinine Ratio 12.2 (12.0-20.0); Calcium, Blood 13.3 mg/dL (8.5-10.1); Creatinine, Blood 1.23 mg/dL (0.40-1.00); Globulin, Blood 4.1 g/dL (2.2-4.0); Potassium, Blood 3.6 mmol/L (3.5-5.5); Total Protein, Blood 7.2 g/dL (6.4-8.2)
[2018-10-04 06:48] LABS: Adenovirus F 40/41 Not Detected (NOT DETECT); Astrovirus Not Detected (NOT DETECT); Campylobacter Sp Not Detected (NOT DETECT); Cryptosporidium Not Detected (NOT DETECT); Cyclospora Cayetanensis Not Detected (NOT DETECT); E. Coli O157 Not Detected (NOT DETECT); Entamoeba Histolytica Not Detected (NOT DETECT); Enteroaggregative E. coli-EAEC Not Detected (NOT DETECT); Enteropathogenic E. coli-EPEC Not Detected (NOT DETECT); Enterotoxigenic E. coli-ETEC Not Detected (NOT DETECT); Giardia Lamblia Not Detected (NOT DETECT); Norovirus GI/GII Not Detected (NOT DETECT); Plesiomonas Shigelloides Not Detected (NOT DETECT); Rotavirus A Not Detected (NOT DETECT); Salmonella Sp Not Detected (NOT DETECT); Sapovirus Not Detected (NOT DETECT); Shiga Toxin-prod E. coli-STEC Not Detected (NOT DETECT); Shigella/Enteroin E. coli-EIEC Not Detected (NOT DETECT); Vibrio Cholerae Not Detected (NOT DETECT); Vibrio Sp Not Detected (NOT DETECT); Yersinia Enterocolitica Not Detected (NOT DETECT)
[2018-10-04] MEDS ORDERED: PROLIA60 MG/1 ML SC (07:18)
[2018-10-04] MEDS ORDERED: VITAMIN B125000 MCG PO (07:20)
[2018-10-04 08:31] LABS: Source, Urine Catheter
[2018-10-04 08:41] LABS: Appearance, Urine Hazy (Clear); Bilirubin, Urine Neg (Neg); Blood, Urine 2+ (Neg); Color, Urine Yellow (P-Yellow); Glucose Qualitative, Urine Neg (Neg); Ketones, Urine Neg (Neg); Leukocyte Esterase, Urine 3+ (Neg); Nitrite, Urine Neg (Neg); Protein, Urine 1+ (Neg); Specific Gravity, Urine 1.015 (1.003-1.022); Urobilinogen, Urine NORM (Normal)
[2018-10-04 08:58] LABS: Bacteria Mod /hpf; Red Blood Cells, Urine 0-2 /hpf (0-2); Squamous Epithelial Cells Mod /hpf (Few)
--- NOTE | 2018-10-04 11:20 | NUR ---
PT ARRIVED TO PCU 8 VIA GURNEY FROM ED. SHE SEEMS A BIT DROWSY, WHEN ASKED WHERE HER PAIN IS SHE SAYS HER IV TO HER RIGHT HAND, AND HER RIGHT SIDE. A/OX3, COOPERATIVE WITH CARE, NEEDS DIRECTION TO FOLLOW COMMANDS, LUNGS ARE CLEAR T/O, RESP EVEN AND UNLABORED, SATS ARE IN THE 90'S ON R/A, RESP EVEN AND UNLABORED, NO COUGH NOTED, HRR, TELE IN PLACE RUNNING SR PER MONITOR, SEE STRIP, NO EDEMA NOTED TO B/L LE, PPP+1, CAP REFILL <3SEC, VS STABLE AFEBRILE, IV SITE TO RIGHT HAND,INFUSING FLUIDS ORDERED, BTX4, ABD FLAT SOFT NONTENDER, SKIN IS PALE, NO OPEN AREAS, GERALD VALLEJO, ORIENTED TO ROOM LAYOUT AND CALL SYSTEM. CALL LIGHT IN REACH.
--- NOTE | 2018-10-04 16:57 | NUR ---
pt continues to be groggy, but states she is feeling some better. mediport was accessed, fluids infusing as ordered by Dr. Salgado. call light in reach.
--- NOTE | 2018-10-04 17:31 | NUR ---
PT MORE AWAKE, ASKING TO USE BATHROOM, GAVE HER A BEDPAN, WAS UNABLE TO GO, BLADDER SCAN SHOWED 523MLS. WILL TRY AGAIN. CALL LIGHT IN REACH.
--- NOTE | 2018-10-04 18:42 | NUR ---
PT WAS ABLE TO TRANSFER TO [facility]. NO FURTHER CHANGES THIS SHIFT. CALL LIGHT IN REACH.
[2018-10-05 04:03] LABS: BASOPHILS ABSOLUTE AUTO 0.03 K/mm3 (0.00-0.23); BASOPHILS PERCENT AUTO 1 % (0-2); EOSINOPHILS ABSOLUTE AUTO 0.25 K/mm3 (0.00-0.68); EOSINOPHILS PERCENT AUTO 5 % (0-6); Hematocrit 34.6 % (33.0-51.0); Hemoglobin 11.3 g/dL (11.5-16.0); IMMATURE GRAN ABSOLUTE AUTO 0.01 K/mm3 (0.00-0.10); IMMATURE GRAN PERCENT AUTO 0 % (0-1); LYMPHOCYTES ABSOLUTE AUTO 0.83 K/mm3 (0.84-5.20); LYMPHOCYTES PERCENT AUTO 16 % (21-46); MONOCYTES ABSOLUTE AUTO 0.54 K/mm3 (0.16-1.47); MONOCYTES PERCENT AUTO 11 % (4-13); Mean Corpuscular HGB 28.7 pg (26.0-34.0); Mean Corpuscular HGB Conc 32.7 g/dL (31.5-36.5); Mean Platelet Volume 10.2 fL (9.1-12.4); NEUTROPHILS ABSOLUTE AUTO 3.42 K/mm3 (1.96-9.15); NEUTROPHILS PERCENT AUTO 67 % (41-73); Platelet Count 226 K/mm3 (150-400); RDW Coefficient Variation 12.1 % (11.7-14.2); Red Blood Cell Count 3.94 M/mm3 (3.80-5.20); White Blood Cell Count 5.08 K/mm3 (4.00-11.30)
[2018-10-05 04:17] LABS: Mean Corpuscular Volume 88 fL (80-100)
[2018-10-05 04:31] LABS: Bun/Creatinine Ratio 10.2 (12.0-20.0); Calcium, Blood 10.4 mg/dL (8.5-10.1); Creatinine, Blood 1.08 mg/dL (0.40-1.00); Potassium, Blood 3.2 mmol/L (3.5-5.5)
--- NOTE | 2018-10-05 08:09 | NUR ---
SHIFT SUMMARY PT ALERT, ORIENTED TO SELF AND PLACE. VSS. LUNG SOUNDS CLEAR T/O. SPO2 > 92% ON RA. MONITOR SHOWS NSR. OBTAINED ORDERS FROM MD QUINN FOR NYASTATIN POWDER FOR REDDENED AREA IN GROIN. PT SLEEPING MAJORITY OF SHIFT. NS INFUSING IN MEDIPORT PER ORDERS. REPORT GIVEN TO DAY SHIFT RN.
--- NOTE | 2018-10-05 08:10 | NUR ---
pt laying in bed with eyes closed, wakes easily, moans a lot, vs stable, febrile at 100.3, mild confusion, follows commands but needs a lot of direction, lungs are clear t/o, resp even and unlabored, no cough noted, hrr, tele in place running sr per monitor, see strip, no edema noted, ppp+2, cap refill <3sec, vs stable, afebrile, iv site is mediport that is accessed, and infusing ns at 100mls/hr, site is clear, has a piv to rhand, will remove that today as it is very tender, btx4, abd flat soft nontender, voids without diff, skin has a rash to cesario area with tx with nystatin as ordered, very weak is a two person assist to chair, or to turn, teodoro. call light in reach.
--- NOTE | 2018-10-05 12:42 | NUR ---
pt has been painful this am, has been medicated several times, is resting quietly at this time. parents were in to see her but did not want to disturb her so they left. call light in reach.
--- NOTE | 2018-10-05 18:27 | NUR ---
pt had a hard morning with a lot of pain, after medicating several times she fell asleep and has slept the rest of the day, she wakes easily, vs are stable, but is sleeping soundly. call light in reach.
--- NOTE | 2018-10-06 05:43 | NUR ---
HAS BEEN MORE ALERT THROUGH OUT SHIFT, BUT MILD CONFUSION CONTINUES. MEDICATED FOR PAIN X2 WITH ZHEN, AND X2 WITH MORPHINE. INCONTINENT OF BLADDER, LINENS CHANGED X2 THIS SHIFT AFTER PT SATURATED DIAPER, SHE IS A HEAVY WETTER. DEINES PAIN, DISCOMFORT, OR FURTHER NEEDS. SAFTEY MEAURES IN PLACE. WILL CONTINUE TO MONITOR.
[2018-10-06 09:47] LABS: BASOPHILS ABSOLUTE AUTO 0.03 K/mm3 (0.00-0.23); BASOPHILS PERCENT AUTO 1 % (0-2); EOSINOPHILS ABSOLUTE AUTO 0.17 K/mm3 (0.00-0.68); EOSINOPHILS PERCENT AUTO 4 % (0-6); Hematocrit 32.3 % (33.0-51.0); Hemoglobin 10.2 g/dL (11.5-16.0); IMMATURE GRAN ABSOLUTE AUTO 0.04 K/mm3 (0.00-0.10); IMMATURE GRAN PERCENT AUTO 1 % (0-1); LYMPHOCYTES PERCENT AUTO 12 % (21-46); MONOCYTES ABSOLUTE AUTO 0.41 K/mm3 (0.16-1.47); MONOCYTES PERCENT AUTO 10 % (4-13); Mean Corpuscular HGB 28.3 pg (26.0-34.0); Mean Corpuscular HGB Conc 31.6 g/dL (31.5-36.5); Mean Corpuscular Volume 90 fL (80-100); NEUTROPHILS ABSOLUTE AUTO 3.04 K/mm3 (1.96-9.15); NEUTROPHILS PERCENT AUTO 73 % (41-73); RDW Coefficient Variation 12.4 % (11.7-14.2); RDW Standard Deviation 40.8 fL (35.1-46.3); Red Blood Cell Count 3.61 M/mm3 (3.80-5.20); White Blood Cell Count 4.19 K/mm3 (4.00-11.30)
[2018-10-06 10:04] LABS: Albumin, Blood 2.4 g/dL (3.4-5.0); Albumin/Globulin Ratio 0.7 (0.8-1.8); Bilirubin, Total 0.3 mg/dL (0.1-1.0); Bun/Creatinine Ratio 10.9 (12.0-20.0); Calcium, Blood 8.7 mg/dL (8.5-10.1); Creatinine, Blood 1.01 mg/dL (0.40-1.00); Globulin, Blood 3.3 g/dL (2.2-4.0); Potassium, Blood 3.5 mmol/L (3.5-5.5); Total Protein, Blood 5.7 g/dL (6.4-8.2)
[2018-10-06 10:18] LABS: Mean Platelet Volume 10.5 fL (9.1-12.4); Platelet Count 157 K/mm3 (150-400)
--- NOTE | 2018-10-06 15:44 | NUR ---
INITIAL PALLIATIVE CARE VISIT. I met with pt, her son and parents in pt's room, PCU 8 after review of EMR and case conferencing with her RN twice today. Pt is awake and alert. She is oriented to person, place, time and situation but is expresses confusion about the particulars of her current health status, and events of the past couple of weeks. Racheal is 63 and has battled cancer, reoccurance of cancer and se of tx since she was first diagnosed with breast cancer in 2009. She was living in [place] at that time and received tx while living there and also while living in [place] before moving to [place] to live with her parents here. Her son, Jose, also lives locally and all are supportive and participatory in her care but feel they cannot meet her care needs at home in her current weakened and fragile state. Pt was admitted with hypercalcemia two days ago. Family report that today has been the best day for her in about two weeks in regard to her ability to communicate, think more clearly and participate in her care. We had a very long visit and discussed her goals of care, wishes, advanced directives, surrogate decision makers, code status. I answered questions re: d/c options if she is unable to return home at this time. She verbalized understanding that she has to be stronger and recover from current issues before she could consider returning to active chemo tx again per her visit with Dr Salgado this week. Pt's family also understand this and feel that treatment would decrease her quality of life even if it gave her "more time". Racheal is still weighing this out. In discussing code status pt is confused and uncertain what she has requested. She completed an advanced directive approx 14 months ago and I printed that out for her and family to review with the plan to revisit tomorrow. I explained that pt is a full code at this time and what that meant. Pt is uncertain if that is what she wants and will talk with her family further and with me again tomorrow if she has questions/concerns. Racheal would like to pursue getting stonger and going back to rehab, where she did gain strength and independence after her last hospital stay. Report of my visit given to RN and Orders for dc planning, PT/OT requested, obtained and entered. FAmily very happy with plan to have pt evaluated by PT/OT and pleased she is feeling much better now, but they are also realistic that pt may be declining and nearing EOL. They had questions about hospice care and I answered those questions also. Pt is tearful off and on but also able to laugh and joke with her family and me, intermittently. She states she has tried to stay positive over all the years of her darnell with cancer. She understands her cancer and mets is not curable. She does not want her life prolonged by artificial means if she is near the end of her life and she stated this in a number of ways to me. Her family is in support of her wishes. She stated she does not want to suffer or choose medical interventions that would make her suffer worse than she already has. We agreed to meet again tomorrow. Family will have me paged when they arrive to visit tomorrow.
--- NOTE | 2018-10-07 07:13 | NUR ---
END OF SHIFT SUMMARY NO ACUTE CHANGES THIS SHIFT. PT HAD 1 INSTANCE OF FEVER, MEDICATED WITH TYLENOL, AFEBRILE SINCE THEN. PT HAS POOR MEMORY, HAS TO BE REMINDED TO SWALLOW AT TIMES. PT HAS BEEN UP TO BSC, NEEDS MAX ASSIST. PT HAS BEEN CLEANED AND ATTENDS CHANGED AND LOTION APPLIED TO PERIA AREA MULTIPLE TIMES THIS SHIFT. PT HAS NOT SLEPT. FINALLY TURNS LIGHTS OFF @0600. PT HAS BEEN COOPERATIVE WITH CARE BUT NEEDS GUIDANCE IN PERFORMING SIMPLE TASKS. CALL LIGHT HAS BEEN WITHIN REACH THIS SHIFT. REPORT GIVEN. BED ALARM IN PLACE.
[2018-10-07 08:02] LABS: Anion Gap 6 mmol/L (6-16); Blood Urea Nitrogen 11 mg/dL (8-24); Bun/Creatinine Ratio 12.5 (12.0-20.0); CO2, Blood 23 mmol/L (21-32); Chloride, Blood 115 mmol/L (98-108); Creatinine, Blood 0.88 mg/dL (0.40-1.00); Glomerular Filtration Rate >60 (60-); Glucose, Blood 97 mg/dL (70-99); Potassium, Blood 3.5 mmol/L (3.5-5.5); Sodium, Blood 144 mmol/L (136-145)
[2018-10-07 08:05] LABS: BASOPHILS ABSOLUTE AUTO 0.02 K/mm3 (0.00-0.23); BASOPHILS PERCENT AUTO 1 % (0-2); EOSINOPHILS ABSOLUTE AUTO 0.16 K/mm3 (0.00-0.68); EOSINOPHILS PERCENT AUTO 4 % (0-6); Hemoglobin 9.2 g/dL (11.5-16.0); IMMATURE GRAN ABSOLUTE AUTO 0.01 K/mm3 (0.00-0.10); IMMATURE GRAN PERCENT AUTO 0 % (0-1); LYMPHOCYTES ABSOLUTE AUTO 0.53 K/mm3 (0.84-5.20); LYMPHOCYTES PERCENT AUTO 13 % (21-46); MONOCYTES ABSOLUTE AUTO 0.51 K/mm3 (0.16-1.47); MONOCYTES PERCENT AUTO 12 % (4-13); Mean Corpuscular HGB 29.1 pg (26.0-34.0); Mean Corpuscular HGB Conc 32.9 g/dL (31.5-36.5); Mean Corpuscular Volume 89 fL (80-100); Mean Platelet Volume 10.4 fL (9.1-12.4); NEUTROPHILS ABSOLUTE AUTO 2.92 K/mm3 (1.96-9.15); NEUTROPHILS PERCENT AUTO 70 % (41-73); Platelet Count 178 K/mm3 (150-400); RDW Coefficient Variation 12.5 % (11.7-14.2); RDW Standard Deviation 40.6 fL (35.1-46.3); Red Blood Cell Count 3.16 M/mm3 (3.80-5.20); White Blood Cell Count 4.15 K/mm3 (4.00-11.30)
--- NOTE | 2018-10-07 10:59 | NUR ---
ALTERED LOC PT HAS BEEN SLOWLY BECOMING MORE AGGITATED THE MORNING HAS PROGRESSED. SHE IS SEEING HER LOVED ONES OUTSIDE HER WINDOW LOOKING AT HER. SHE THINKS PEOPLE ARE IN HER ROOM WHEN THEY ARE NOT. SHE HAS STARTED CLIMBING OOB. BED ALARM ON. O/T HAS WORKED WITH HER THIS MORNING. SHE PERSEVERATES OFTEN. UNABLE TO REDIRECT. HER NIGHT NURSE MENTIONED THAT SHE DID NOT SLEEP ALL NIGHT. SHE DIDN'T NAP YESTERDAY EITHER. CALLED DR FORD. ORDER RECEIVED FOR ATIVAN 1MG IV X1 RECEIVED. HELPED PT BACK INTO BED. POSITIONED FOR HER COMFORT. MEDICATED HER WITH ATIVAN IV. TUCKED HER IN WITH A WARM BLANKET AND TURNED THE LIGHTS OFF. QUIETLY REASSURED HER THAT SHE WAS SAFE UNTIL HER EYES CLOSED. RESTING QUIETLY. RESP. EVEN AND UNLABORED. CONTINUE POT.
--- NOTE | 2018-10-07 12:31 | NUR ---
POST ATIVAN PT RESTING QUIETLY. EYES CLOSED. RESP. EVEN AND UNLABORED. PT MOM/DAD HERE TO VISIT. THEY BROUGHT PT GRIJALVA AND LET HER REST. CONTINUE POT.
--- NOTE | 2018-10-07 14:49 | NUR ---
[facility] Care visit and family conference: Visit to pt and son in her room. Pt had been medicated with Ativan earlier due to continued increased anxiety and hallucinations causing even more distress. Pt was sleeping very soundly and did not wake to verbal or tactile stimuli at 1345 when I visited. Son and I stepped out of the room and met for a long period to discuss pt's current status, decline in cognition and decision making abilities and his/family wishes for her. He has talked with his grandparents and uncle. They are leaning towards bringing pt home and would like hospice support. Pt has not been able to verbalize that this is her wish, even with more clarity yesterday, she had great difficulty focusing on information to make decisions for herself. She said repeatedly that she had made her wishes known in her AD and that her son was her surrogate decision maker. Jose and I reviewed her AD again and I placed a copy on the front of the chart. She stated in the AD that her medical POA could decide for her and she also stated her wishes for no tube feedings and no life support if she were near the end of her life, suffering or had advanced progressive illness. I reviewed yesterday's PT eval with son and their thoughts regarding rehab. Son is now aware that pt may continue to decline, due to end stage cancer, and not be able to gain strength or to remember directions necessary to progress with a rehab stay. He and family are leaning heavily towards taking pt home, which is what she wants most, with hospice support. Jose states he plans to take responsibility for care in his grandparents home so that they are not feeling so vulnerable and burdened with not knowing what to do to help her as she declines. He would very much appreciate the support of hospice care to accomplish this goal. He lives within 5 minutes of his mom's/grandparents home. He has an uncle coming to help also. We also discussed alternative placement in the event that going home is not possible. Pt has medicaid per Jose. He is unsure who her CW at [facility] is. I will update the care managers and tomorrow's Palliative Care staff that Jose will be talking with other family members this evening and would like to meet with them to formulate a plan tomorrow. We discussed comfort care here and then hospice on d/c and also discussed continuing treatment for hypercalcemia here until d/c with plan to start hospice once home. We discussed code status again. It is the opinion of this commercial loan underwriter that pt intended to be a no code, per her Advanced Directive, but in her confusion did not understand what she was being asked on admission. Jose and pt's parents would be in favor of pt being a no code at this time. That will need to be addressed tomorrow also. Jose was tearful at times. He has lived with his mother's illness and supported her for the past 10 years. He is worried about his grandprents and the realization that his mom is unable to make decisions or have another remission is weighing on him. He plans to take a time out this afternoon with his and children and be here tomorrow again to assist with the plan of care and arrangements. I thanked him for being present and taking responsibility for his mom's well being and care. Discussed self care and the dire need for it at this time.
--- NOTE | 2018-10-07 17:25 | NUR ---
POST ATIVAN AFTER GIVING PT ATIVAN 1MG IV EARLIER. PT HAS AWAKENED FOR SHORT PERIODS AND THEN DRIFTED BACK TO SLEEP. PT AWAKEND PRIOR TO DINNER. SHE DOES NOT KNOW WHERE SHE IS. SHE "CAN'T BELIEVE" THAT SHE IS IN THE HOSPITAL. SHE WANTS TO GO GET HER LOCKER. PT IS CALM AND DIRECTABLE. EATING SOME APPLESAUCE AND DRINKING ICE TEA. VSS. BED ALARM ON. CONTINUE POT.
--- NOTE | 2018-10-08 05:36 | NUR ---
END OF SHIFT SUMMARY NO ACUTE CHANGES THIS SHIFT. VSS. WAS MADE MED NO TELE STATUS DURING DAY SHIFT. PT HAS BEEN COOPERATIVE WITH CARE. HAS T/O THE SHIFT SHOWED SIGNS OF PARANOID HALLUCINATIONS AND PARANOIA. PT HAS STATES FEAR OF "MAN IN WINDOW WHO WANTS TO SHOOT HER". PT HAS ASKED THAT POLICE BE IN HER ROOM TO FEEL SAFE. PT WAS WHEELED OUT INTO UNIT BY CHARGE NURSE BRANDIN IN ORDER TO ALLEVIATE SAFETY CONCERNS FOR PT. THIS HAS PROVEN TO DECREASE PT'S PARANOIA SO FAR. WILL CONTINUE TO MONITOR PT UNTIL SHIFT CHANGE. CALL LIGHT WITHIN REACH. BED ALARM. BED IN LOWEST POSITION.
--- NOTE | 2018-10-08 11:21 | NUR ---
CALLED DR. TAN TO REPORT PATIENT IRRATIC BEHAVIOR AND CONFUSION. HE ORDERED ONE TIME ATIVAN IV, 1 MG. WILL GIVE AND REPORT PT REPONSE TO
--- NOTE | 2018-10-08 12:06 | NUR ---
DR TAN TO ROOM TO VISIT WITH FAMILY TO EXPLAIN THE OPTIONS OF HOSPICE CARE AND HER CARE GOING FORWARD. DR SPENT TIME ANSWERING QUESTIONS AT LENGTH. WILL CONTINUE TO FOLLOW CASE CLOSELY.
--- NOTE | 2018-10-08 13:48 | NUR ---
RECEIVED REPORT AND ASSUMED CARE AT SHIFT CHANGE. WHEN THIS RN ENTERS THE ROOM THIS AM, PT IS APPROPRIATE AND QUITE LUCID TO HER SURROUNDINGS AND SITUATION. SHE STATES, "MY FAMILY KNOWS THAT IF I START TO GO [place] I DON'T WANT TO BE IN PAIN." DR TAN AT BEDSIDE AND PT ANSWERING QUESTIONS APPROPRIATELY. ABOUT 30 MINUTES LATER PT BEGINS HAVING HALLUCINATIONS AND PARANOID EPISODE, SHE BELIEVES PEOPLE ARE COMING FROM THE PARKING LOT BELOW TO "GET HER" THEN SHE BELIEVES THERE IS A WOMAN IN THE [place] THAT MEANS TO HARM HER. THIS RN STAYED AT BEDSIDE AND EXPLAINED THAT SHE IS SAFE. CLOSED BLINDS TO ALLEVIATE THE OUTSIDE VIEW. PT CONTINUED TO STATE SHE IS GOING HOME AND REPEATEDLY GETS UP FROM BED, CALLED DR TAN TO REPORT CHANGE, HE ORDERED 1MG IV ATIVAN. DR TAN TO BEDSIDE TO MEET WITH PT AND FAMILY, NOTE WRITTEN, SEE FILE. FAMILY ASKED TO SEE PALLIATIVE CARE NURSE, KELSEY Carroll TO BEDSIDE TO DISCUSS OPTIONS.
--- NOTE | 2018-10-08 15:30 | NUR ---
Pt resting in bed. Patients son and father at bedsiide. Patient up to bathroom. Theraputic time with patient combed her hair warm back rub and skin care and some time ambulating. Pt repetative and confussed seeing things in the room and at the end of the bed. Having perioda of anexiety and thinking she had to be somewhere. Family wanted review of hospice versus home health. Review of disciplins and possible plans of care. Review of the specifics of continued care and home health. Review of what hospice offers and they had questions on managing her care. Discussed supportive service, medications, not returning to hospital. Presented the support given for a natural peacful progression of her end stage disease. Review of hydration and PO intake for pleasure not for nutrition. Discussed the medications available for symptoms and delivery methods. Review of hospice agencies. At this point they did not have a preference. Advised I will ask intensive care unit registered nurse who is available. Son feels hospice is where he is leaning but having difficulty making the decision. Supportive discussion of yamel bansal hard decision and holisitc. He has family coming tomorrow and would like to kristen to them first. Provided reassurance that he can have soem time to process and attemtpted to remove some preassure . advise ld will check back and give hime some space and support if he needs it. will update [employer] supervisor case loading.
--- NOTE | 2018-10-08 16:56 | NUR ---
Pal Spiritual Care initial visit: Racheal was alone in room and pleasantly confused. She feels she has somewhere to go and tells me "I am waiting for my parents to pick me up." We had a gabino, albeit disjointed, conversation. I complimented her on her son. She is very proud of him. She denied pain, fear, or concerns other than to say "I have so much to get done." I will remain available to pt and family.
--- NOTE | 2018-10-08 18:26 | NUR ---
PT CONTINUED TO STRUGGLE WITH PARANOID THOUGHTS AND FLIGHT OF IDEAS. CONTINUED TO PROVIDE THERAPEUTIC LISTENING AND COMMUNICATION THROUGHOUT SHIFT. PT AT THE NURSING STATION WITH CHARGE NURSE COLLIN TO PROVIDE OPPORTUNITY FOR PATIENT TO SEE THE NOISES FROM THE [place] AND INTERACT WITH OTHERS. WILL CONTINUE TO MONITOR AND GIVE REPORT TO NOC RN. BED LOCKED AND LOW, BED ALARM ARMED, HOB ELEVATED, CALL LIGHT WITHIN EASY REACH.
--- NOTE | 2018-10-09 05:18 | NUR ---
NO ACUTE CHANGES THIS SHIFT. VSS. PT TO BSC MULTIPLE TIME IN BEGINNING OF SHIFT. PT RECEIVED FULL BED BATH. PT ATE DINNER. PT FELL ASLEEP POST BED BATH. IV KEPPRA INFUSION ADMINISTERED PER EMAR. PT HAS BEEN ASLEEP SINCE THEN. UNLABORED BREATHING. EQUAL CHEST RISE. PT SHOWING NO SIGNS OF DISTRESS. WILL CONTINUE TO MONITOR PT UNTIL SHIFT CHANGE. PT BRIEF DRY.
--- NOTE | 2018-10-09 09:36 | NUR ---
RECEIVED REPORT AND ASSUMED CARE OF PATIENT, SHE IS SLEEPING HARD THIS AM. WHEN DOING PT VS AND ASSESSMENT PT IS WET, GOT PT ALL CLEANED UP WITH SHOWER, BED CHANGE AND PT BACK TO BED RESTING WELL AT THIS TIME. PT CONTINUES ON RA, NO PAIN NOTED AT THIS TIME. WILL CONTINUE TO MONITOR AND PREPARE TO TRANSFER PATIENT TO MEDICAL FLOOR ROOM 350.
--- NOTE | 2018-10-09 14:22 | NUR ---
Review of family discussion with son. They as a family feel hospice care is best path for their beloved mother. Review of the hospice agencies in the community and services. They did not have a preferance. Met with [employer]reen career orientation teacher. gave list of equipment and desire to get patient home tomorrow. Hopsice consult ordered. Pt comfort able this afternoon and interactive. Will follow up with family for supportive visits
--- NOTE | 2018-10-09 16:46 | NUR ---
PAL CARE VISIT _ Met with son in our office earlier today. Jose states the family would like pt to have hospice care at her home on discharge. I made a social/therapeutic visit to son and pt in follow up. Pt sitting up in chair talking with Feather Curling Machine Operator, Meredith and son, Jose. She looks much more clear and comfortable than when I saw her last on Monday. Brief time spent visiting with her and then I excused myself to allow dc and hospice planning conversation to continue. Planned with pt and son that I would stop by tomorrow before her discharge.
--- NOTE | 2018-10-09 17:26 | NUR ---
SUMMARY PCU TRANSFER TODAY APPROX 1100. SHE IS A/O X4 @ THIS TIME. HX LUNG CA W METS BRAIN, BONE, LIVER. SHE STATE BONE/JOINT PAIN, OXYCODONE GIVEN FOR RELIEF, CONTROL. PT/FAMILY & PALLIATIVE CARE MET TODAY. DECISION MADE FOR HOSPICE, FAMILY PREPARING HOME. [employer] D/C GRAPHIC PRODUCTION ARTIST & [facility] ANALYSIS MGR MAKE ARRANGEMENTS FOR D/C TOMORROW @ 1100. FAMILY WILL PROVIDE TRANSPORTATION HOME. VSS. IV NS CONTINUES @ 100 ML/HR.
--- NOTE | 2018-10-10 05:52 | NUR ---
SHIFT SUMMARY PT SLEPT WELL DURING THE NIGHT. RECEIVED PAIN MEDICATION AT BEDTIME. PT INCONTINENT LARGE AMOUNTS OF URINE DURING THE NIGHT. NO SEIZURE LIKE ACIVITY NOTED. NO ACUTE EVENTS NOTED, WILL CONTINUE TO MONITOR.
[2018-10-10] MEDS ORDERED: ROXICODONE5 MG ×2 (11:40→12:00)
[2018-10-10] MEDS ORDERED: ACET325 PO (11:42)
[2018-10-10] MEDS ORDERED: MIRALAX119 GM (11:42)
[2018-10-10] MEDS ORDERED: BISA5EC (11:44)
[2018-10-10] MEDS ORDERED: DOCU100 (11:45)
[2018-10-10] MEDS ORDERED: DIPH12.5EL (11:45)
[2018-10-10] MEDS ORDERED: LEVE500 PO (11:46)
[2018-10-10] MEDS ORDERED: LORA1 (11:47)
[2018-10-10] MEDS ORDERED: PANT40 PO (11:51)
--- NOTE | 2018-10-10 12:00 | NUR ---
Pal Care Visit made to pt and son at bedside. Pt's chief c/o this am is being cold. Warm blanket obtained and placed directly on pt with her other blankets placed over the warmed blanket. She & son appear classified ad clerk-hearted this am. they are enjoying talking about home going, equipment being set up in the home this am, etc. Racheal is alert and oriented. She is getting ready to take a shower before her ride home. RN at bedside assisting/caring for pt also. We discussed who would be visiting from hospice and enouraged clear communication of her and family's needs as they become known. Time spent saying farewells with pt/son.
[2018-10-10] MEDS ORDERED: ROXICODONE INTENSOL (12:02)
--- NOTE | 2018-10-10 12:22 | NUR ---
PATIENT DISCHARGE: PATIENT DISCHARGED TO HOME WITH HOSPICE THIS SHIFT. MEDICATION RECONCILIATION COMPLETED; MED LIST FAXED TO [facility]. DISCHARGE EDUCATION COMPLETED WITH PATIENT AND FAMILY. PATIENT TRANSPORTED TO EXIT BY [facility] WITH WHEELCHAIR AT 1220. PATIENT DEPARTED [facility] VIA PRIVATE AUTO.
== END 2018-10-10 12:48 | disposition hospice, home (50) | DRG 641 ==
LOC: ER 04:24 → PCU 09:49 → MEDS 09:49 → PCU 11:11 → MEDS 10-09 11:03 → EDPENDDIS 10-10 08:10 → ENPENDDIS 10-10 08:10 → MEDS 10-10 12:48
PROVIDERS: Emergency Medicine; ADMIT Internal Medicine
DX: E83.52 Hypercalcemia (principal); N39.0 Urinary tract infection, site not specified; C79.51 Secondary malignant neoplasm of bone; C78.7 Secondary malignant neoplasm of liver and intrahepatic bile duct; C79.31 Secondary malignant neoplasm of brain; N17.9 Acute kidney failure, unspecified; E86.0 Dehydration; G89.4 Chronic pain syndrome; E87.6 Hypokalemia
CPT/HCPCS: 36415; 71045; 74177; 80048; 80053; 81001; 83605; 84484; 85025; 85610; 85730; 87040; 87086; 87507; 93005; 93010; 96361-59; 96374-59; 96375-59; 97110; 97162; 97166; 97530; 97535; 99285-25; A9270; C9113; J0696; J1642; J1953; J2060; J2270; J2405; J3480; J3489; J7030; J7120; Q9967

== ENCOUNTER → 2018-12-31 | Outpatient (CLI) | payer OTHER ==
[~2018-12-31] MED LIST changes: +ACET325 PO; +BISA5EC; +DIPH12.5EL; +DOCU100; +LEVE500 PO; +LORA1; +MIRALAX119 GM; +ROXICODONE INTENSOL; +ROXICODONE5 MG; +VITAMIN B125000 MCG PO
[2018-12-31 18:26] LABS: Source, Urine Clean Catch
[2018-12-31 18:56] LABS: Appearance, Urine Clear (Clear); Bilirubin, Urine Neg (Neg); Blood, Urine Neg (Neg); Color, Urine Amber (P-Yellow); Glucose Qualitative, Urine Neg (Neg); Ketones, Urine 1+ (Neg); Leukocyte Esterase, Urine 1+ (Neg); Nitrite, Urine Neg (Neg); Protein, Urine Neg (Neg); Specific Gravity, Urine 1.025 (1.003-1.022); Urobilinogen, Urine NORM (Normal)
[2018-12-31 19:08] LABS: Bacteria Few /hpf; Red Blood Cells, Urine 0-2 /hpf (0-2); Squamous Epithelial Cells Not Seen /hpf (Few); White Blood Cells, Urine 0-2 /hpf (0-5)
== END | disposition home or self-care (01) ==
LOC: LAB SHORT 11:00 → LAB 11:00
PROVIDERS: Internal Medicine Hematology & Oncology
DX: C34.11 Malignant neoplasm of upper lobe, right bronchus or lung (principal); C78.7 Secondary malignant neoplasm of liver and intrahepatic bile duct; C79.31 Secondary malignant neoplasm of brain; N39.0 Urinary tract infection, site not specified
CPT/HCPCS: 81001; 87086